=== PATIENT | male | born 1965 | race American Indian/Alaskan Native ===

== ENCOUNTER 2016-07-03 22:40 | Emergency (ER) | payer SELFPAY | END 2016-07-04 01:00 | disposition left against medical advice (07) | LOC: ED 22:40 | DX: T14.8 Other injury of unspecified body region (principal); W54.0XXA Bitten by dog, initial encounter; Y93.9 Activity, unspecified; Y92.89 Other specified places as the place of occurrence of the external cause; Y99.9 Unspecified external cause status; Z53.21 Procedure and treatment not carried out due to patient leaving prior to being seen by health care provider ==

== ENCOUNTER 2016-09-10 02:04 | Emergency (ER) | payer SELFPAY ==
[2016-09-10 03:23] LABS: Basophils % (Auto) 0.8 % (0.0-1.8); Eosinophils % (Auto) 0.2 % (0.0-4.3); Hematocrit 34.7 % (35.5-45.6); Hemoglobin 11.8 gm/dl (11.8-15.2); Mean Corpuscular HGB Conc 34 % (32-34); Mean Corpuscular Hemoglobin 35 pg (28-32); Mean Corpuscular Volume 103 fl (84-94); Platelet Count 139 K/mm3 (140-440); Red Blood Count 3.37 M/mm3 (3.65-5.03); White Blood Count 3.3 K/mm3 (4.5-11.0)
[2016-09-10 03:35] LABS: Anion Gap 23 mmol/L; BUN/Creatinine Ratio 18.88; Blood Urea Nitrogen 17 mg/dL (9-20); Calcium 9.3 mg/dL (8.4-10.2); Carbon Dioxide 20 mmol/L (22-30); Chloride 103.9 mmol/L (98-107); Glucose 91 mg/dL (75-100); Sodium 143 mmol/L (137-145)
--- NOTE | 2016-09-10 04:01 | Emergency Department Report ---
Merle Doc - Documentation Documentation: 51-year-old male presents with acute alcohol intoxication. I'm unclear as outpatient came to the ED. His family members and the bedside received call that he was here and therefore came to the hospital. EMS sheet not available for review. When questioned why he is here he states because he is sick. He says he has heart failure and heart problems. This appears to be chronic. Patient lying flat in the bed with no respiratory distress noted. Patient then states he has been having chest pain all day. Unable to characterize further. Positive EtOH on breath. Patient repeatedly stating he sick and asking for food. Alcohol level is 0.38. I have added cardiac enzymes, EKG, chest x-ray, and magnesium for evaluation. Given patient's acute intoxication I feel he will need further clearance and examination when sober and therefore will be seen by oncoming shift.
[2016-09-10 04:18] LABS: Creatine Kinase MB 3.5 ng/mL (0.0-4.0)
[2016-09-10 04:19] LABS: Creatine Kinase 607 units/L (55-170)
[2016-09-10 04:21] VITALS: BP 137/85
--- NOTE | 2016-09-10 07:28 | XRay Report ---
Single view chest: History: Chest pain. Findings: Cardiomegaly. Trachea is midline. No consolidation, pneumothorax or pleural effusion. Impression: No acute cardiopulmonary findings.
== END 2016-09-10 04:19 ==
LOC: ED 02:04
DX: F10.129 Alcohol abuse with intoxication, unspecified (principal); Z53.21 Procedure and treatment not carried out due to patient leaving prior to being seen by health care provider
CPT/HCPCS: 36415; 71010; 80048; 82550; 82553; 83735; 84484; 85025; 93005; 93010; G0480; 80320

== ENCOUNTER 2016-11-23 18:50 | Emergency (ER) | payer MEDICAID, OTHER ==
--- NOTE | 2016-11-23 20:24 | Emergency Department Report ---
HPI - General Time Seen by Provider: 11/23/16 20:14 - HPI HPI: Room 3 The patient is a 51-year-old male presenting with chief complaint of intoxication. The patient is intoxicated and sleepy and unable to provide a history. Per nursing the patient's girlfriend stated that the patient came to her house "drunk" and then took several Percocets recreationally. The girlfriend states that he does this frequently for recreation and does not have suicidal ideation. EMS reported to nursing that they are familiar with the patient and this behavior. Location: Mental state Duration: Unknown Quality: Intoxicated Severity: Moderate Modifying factors: [see above] Context: [see above] Mode of transportation: [not driving] ED Past Medical Hx - Past Medical History Hx Hypertension: Yes Hx CVA: Yes Hx Congestive Heart Failure: Yes Hx Diabetes: Yes - Surgical History Additional Surgical History: ear surg r) - Family History Family history: no significant - Social History Smoking Status: Unknown if ever smoked Substance Use Type: Alcohol, Other (Percocet) - Medications Home Medications: Home Medications Medication Instructions Recorded Confirmed Last Taken Type Unobtainable [Unobtainable] 06/16/13 06/16/13 Unknown History ED Review of Systems ROS: Stated complaint: OVERDOSE Other details as noted in HPI Comment: Unobtainable due to pts medical conditions Constitutional: denies: chills, fever Physical Exam - Physical Exam Physical Exam: GENERAL: The patient is well-developed well-nourished male sleeping on stretcher not appearing to be in acute distress. Patient awakens to tactile stimuli but promptly falls back asleep HEENT: Normocephalic. Atraumatic. Pupils 3-2 mm bilaterally. Patient has moist mucous membranes. NECK: Trachea midline CHEST/LUNGS: Clear to auscultation. There is no respiratory distress noted. HEART/CARDIOVASCULAR: Regular. There is no tachycardia. There is no gallop rub or murmur. ABDOMEN: Abdomen is soft, nontender. Patient has normal bowel sounds. There is no abdominal distention. SKIN: There is no rash. There is no edema. There is no diaphoresis. NEURO: The patient is asleep but awakens to tactile stimuli. Patient falls back asleep immediately. Patient is not cooperative with neurologic exam MUSCULOSKELETAL: There is no evidence of acute injury. ED Course - Reevaluation(s) Reevaluation #1: 11/24/16 01:33 Patient now awake and answering questions appropriately. Patient denies suicidal ideation and states he took the Percocet recreationally. The patient does not recall specific events that led him to the ED but does acknowledge he consumed alcohol and took Percocet recreationally. Patient denies suicidal ideation. Patient was counseled on the deleterious effects of alcohol and opiates especially when combined and the risk for potential overdose and . Patient verbalized understanding 11/24/16 01:35 ED Medical Decision Making - Lab Data Result diagrams: 11/23/16 20:22 11/23/16 20:22 Laboratory Tests 11/23/16 11/23/16 11/23/16 20:22 20:22 20:22 WBC 3.8 L RBC 2.68 L Hgb 9.7 L Hct 28.5 L MCV 106 H MCH 36 H MCHC 34 RDW 14.0 Plt Count 133 L Lymph % (Auto) 48.3 H Kingman % (Auto) 12.2 H Eos % (Auto) 0.7 Baso % (Auto) 0.9 Lymph # 1.8 Kingman # 0.5 Eos # 0.0 Baso # 0.0 Seg Neutrophils % 37.9 L Seg Neutrophils # 1.4 L Sodium 144 Potassium 3.3 L Chloride 101.1 Carbon Dioxide 25 BUN 12 Creatinine 0.8 Estimated GFR > 60 BUN/Creatinine Ratio 15.00 Glucose 76 Calcium 9.2 Total Bilirubin 0.40 AST 80 H ALT 25 Alkaline Phosphatase 42 Total Creatine Kinase 216 H CK-MB (CK-2) 2.3 CK-MB (CK-2) Rel Index 1.0 Troponin T 0.013 Total Protein 7.3 Albumin 3.9 Albumin/Globulin Ratio 1.1 Salicylates Urine Opiates Screen Urine Methadone Screen Acetaminophen Ur Barbiturates Screen Ur Phencyclidine Scrn Ur Amphetamines Screen U Benzodiazepines Scrn Urine Cocaine Screen U Marijuana (THC) Screen Drugs of Abuse Note Plasma/Serum Alcohol 11/23/16 11/23/16 11/23/16 20:22 20:22 20:22 WBC RBC Hgb Hct MCV MCH MCHC RDW Plt Count Lymph % (Auto) Kingman % (Auto) Eos % (Auto) Baso % (Auto) Lymph # Kingman # Eos # Baso # Seg Neutrophils % Seg Neutrophils # Sodium Potassium Chloride Carbon Dioxide BUN Creatinine Estimated GFR BUN/Creatinine Ratio Glucose Calcium Total Bilirubin AST ALT Alkaline Phosphatase Total Creatine Kinase CK-MB (CK-2) CK-MB (CK-2) Rel Index Troponin T Total Protein Albumin Albumin/Globulin Ratio Salicylates < 0.3 L Urine Opiates Screen Urine Methadone Screen Acetaminophen < 15.0 Ur Barbiturates Screen Ur Phencyclidine Scrn Ur Amphetamines Screen U Benzodiazepines Scrn Urine Cocaine Screen U Marijuana (THC) Screen Drugs of Abuse Note Plasma/Serum Alcohol 0.21 H 11/23/16 Unknown WBC RBC Hgb Hct MCV MCH MCHC RDW Plt Count Lymph % (Auto) Kingman % (Auto) Eos % (Auto) Baso % (Auto) Lymph # Kingman # Eos # Baso # Seg Neutrophils % Seg Neutrophils # Sodium Potassium Chloride Carbon Dioxide BUN Creatinine Estimated GFR BUN/Creatinine Ratio Glucose Calcium Total Bilirubin AST ALT Alkaline Phosphatase Total Creatine Kinase CK-MB (CK-2) CK-MB (CK-2) Rel Index Troponin T Total Protein Albumin Albumin/Globulin Ratio Salicylates Urine Opiates Screen Presumptive negative Urine Methadone Screen Presumptive negative Acetaminophen Ur Barbiturates Screen Presumptive negative Ur Phencyclidine Scrn Presumptive negative Ur Amphetamines Screen Presumptive negative U Benzodiazepines Scrn Presumptive positive Urine Cocaine Screen Presumptive negative U Marijuana (THC) Screen Presumptive positive Drugs of Abuse Note Disclamer Plasma/Serum Alcohol - Differential Diagnosis polysubstance abuse, intoxication, Critical care attestation.: If time is entered above; I have spent that time in minutes in the direct care of this critically ill patient, excluding procedure time. ED Disposition Clinical Impression: Polysubstance abuse, Alcohol intoxication Disposition: DC-01 TO HOME OR SELFCARE Is pt being admited?: No Does the pt Need Aspirin: No Condition: Stable Instructions: Polysubstance Abuse (ED), Alcohol Intoxication (ED), Abuse of Alcohol (ED), At-Risk Alcohol Use (ED), Narcotic Abuse (ED) Additional Instructions: Return to the emergency department immediately should you develop worsening symptoms, fever, inability to tolerate food or liquid or any other concerns. Referrals: PRIMARY CARE, [Primary Care Provider] - 3-5 Days Time of Disposition: 01:35 (DC to family/friends)
[2016-11-23 20:46] LABS: Basophils % (Auto) 0.9 % (0.0-1.8); Eosinophils % (Auto) 0.7 % (0.0-4.3); Hematocrit 28.5 % (35.5-45.6); Hemoglobin 9.7 gm/dl (11.8-15.2); Mean Corpuscular HGB Conc 34 % (32-34); Mean Corpuscular Hemoglobin 36 pg (28-32); Mean Corpuscular Volume 106 fl (84-94); Platelet Count 133 K/mm3 (140-440); Red Blood Count 2.68 M/mm3 (3.65-5.03); White Blood Count 3.8 K/mm3 (4.5-11.0)
[2016-11-23 21:14] LABS: Creatine Kinase MB 2.3 ng/mL (0.0-4.0)
[2016-11-23 21:15] LABS: Alanine Aminotransferase 25 units/L (7-56); Albumin 3.9 g/dL (3.9-5); Albumin/Globulin Ratio 1.1 %; Alkaline Phosphatase 42 units/L (35-129); Anion Gap 21 mmol/L; Blood Urea Nitrogen 12 mg/dL (9-20); Calcium 9.2 mg/dL (8.4-10.2); Carbon Dioxide 25 mmol/L (22-30); Chloride 101.1 mmol/L (98-107); Creatine Kinase 216 units/L (55-170); Glucose 76 mg/dL (75-100); Potassium 3.3 mmol/L (3.6-5.0); Sodium 144 mmol/L (137-145); Total Protein 7.3 g/dL (6.3-8.2)
[2016-11-23] MEDS ORDERED: VITAMIN B-1 100 MG, FOLVITE 1 MG, INFUVITE 10 ML, MAGNESIUM SULFATE 2 GM in NACL 0.9% 1... IV ONE (21:28)
[2016-11-23 23:08] LABS: Urine Drugs of Abuse Note Disclamer
[2016-11-24 01:27] VITALS: BP 170/87
== END 2016-11-24 02:00 | disposition home or self-care (01) ==
LOC: ED 18:50
DX: T40.2X1A Poisoning by other opioids, accidental (unintentional), initial encounter (principal); F10.129 Alcohol abuse with intoxication, unspecified; I50.9 Heart failure, unspecified; Z88.0 Allergy status to penicillin; E11.9 Type 2 diabetes mellitus without complications; Z86.73 Personal history of transient ischemic attack (TIA), and cerebral infarction without residual deficits; X58.XXXA Exposure to other specified factors, initial encounter
CPT/HCPCS: 36415; 80053; 80307; 82550; 82553; 84484; 85025; 93005; 93010; 96365; 96366; 99284; G0480; J3411; J3475; J7030; 80320

== ENCOUNTER 2018-10-31 19:27 | Emergency (ER) | payer MEDICAID ==
--- NOTE | 2018-10-31 20:01 | Event Note ---
ED Screening Note Date of service: 10/31/18 Time: 19:59 ED Screening Note: 53 y o male presents to Ed cc of right sided cp x yesterday non radiating, not getting better This initial assessment/diagnostic orders/clinical plan/treatment(s) is/are subject to change based on patients health status, clinical progression and re- assessment by fellow clinical providers in the ED. Further treatment and workup at subsequent clinical providers discretion. Patient/guardian urged not to elope from the ED as their condition may be serious if not clinically assessed and managed. Initial orders include: labs,ekg, cxr
--- NOTE | 2018-10-31 20:26 | Emergency Department Report ---
ED Chest Pain HPI - General Chief Complaint: Chest Pain Stated Complaint: CHEST PAIN Time Seen by Provider: 10/31/18 19:59 Source: patient Mode of arrival: Ambulatory Limitations: No Limitations - History of Present Illness Initial Comments: 53-year-old male presents to ED with right-sided chest pain since yesterday. Patient states pain is sharp in nature, worse with twisting of torso for lifting right arm. Patient denies cough, fever, shortness of breath. Denies leg pain or swelling. MD Complaint: chest pain -: days(s) (1) Onset: during rest Pain Location: right chest Pain Radiation: none Severity: moderate Quality: sharp Consistency: intermittent Improves With: remaining still Worsens With: palpation, movement re: denies: nausea, vomting, diaphoresis, dyspnea Other Symptoms: denies: cough, fever, leg swelling - Related Data Home Medications Medication Instructions Recorded Confirmed Last Taken Apixaban [Eliquis] 5 mg PO DAILY 10/31/18 10/31/18 10/31/18 AtorvaSTATin [Lipitor] 40 mg PO QHS 10/31/18 10/31/18 10/31/18 Carvedilol [Coreg] 6.25 mg PO BID 10/31/18 10/31/18 10/31/18 Furosemide [Lasix TAB] 40 mg PO QDAY 10/31/18 10/31/18 10/31/18 Sacubitril/Valsartan [Entresto 97 1 each PO DAILY 10/31/18 10/31/18 10/31/18 mg-103 mg Tablet] Previous Rx's Medication Instructions Recorded Last Taken Type Naproxen [Naprosyn] 500 mg PO BID #20 tablet 10/31/18 Unknown Rx Allergies Allergy/AdvReac Type Severity Reaction Status Date / Time Penicillins Allergy Swelling Verified 06/16/13 21:57 Heart Score - HEART Score History: Slightly suspicious EKG: Normal Age: 45-65 Risk factors: No known risk factors Troponin: < normal limit HEART Score: 1 ED Review of Systems ROS: Stated complaint: CHEST PAIN Other details as noted in HPI Comment: All other systems reviewed and negative Constitutional: denies: chills, fever Respiratory: denies: cough, shortness of breath Cardiovascular: chest pain Gastrointestinal: denies: nausea, vomiting Musculoskeletal: other (denies leg pain or swelling) ED Past Medical Hx - Past Medical History Previous Medical History?: Yes Hx Hypertension: Yes Hx CVA: Yes Hx Congestive Heart Failure: Yes Hx Diabetes: Yes - Surgical History Past Surgical History?: Yes Additional Surgical History: ear surg r) - Social History Smoking Status: Current Every Day Smoker Substance Use Type: Marijuana - Medications Home Medications: Home Medications Medication Instructions Recorded Confirmed Last Taken Type Apixaban [Eliquis] 5 mg PO DAILY 10/31/18 10/31/18 10/31/18 History AtorvaSTATin [Lipitor] 40 mg PO QHS 10/31/18 10/31/18 10/31/18 History Carvedilol [Coreg] 6.25 mg PO BID 10/31/18 10/31/18 10/31/18 History Furosemide [Lasix TAB] 40 mg PO QDAY 10/31/18 10/31/18 10/31/18 History Naproxen [Naprosyn] 500 mg PO BID #20 tablet 10/31/18 Unknown Rx Sacubitril/Valsartan [Entresto 97 1 each PO DAILY 10/31/18 10/31/18 10/31/18 History mg-103 mg Tablet] ED Physical Exam - General Limitations: No Limitations General appearance: alert, in no apparent distress - Head Head exam: Present: atraumatic, normocephalic - Eye Eye exam: Present: normal appearance, PERRL, EOMI - ENT ENT exam: Present: mucous membranes moist - Neck Neck exam: Present: normal inspection - Respiratory Respiratory exam: Present: normal lung sounds bilaterally, chest wall tenderness (right anterior chest wall). Absent: respiratory distress, wheezes, rales - Cardiovascular Cardiovascular Exam: Present: regular rate, normal rhythm - GI/Abdominal GI/Abdominal exam: Present: soft. Absent: distended, tenderness - Extremities Exam Extremities exam: Present: normal inspection. Absent: pedal edema, calf tenderness - Neurological Exam Neurological exam: Present: alert, oriented X3 - Skin Skin exam: Present: warm, dry, intact, normal color ED Course Vital Signs 10/31/18 10/31/18 10/31/18 19:59 20:52 23:14 Temperature 98.2 F Pulse Rate 78 73 87 Respiratory 20 20 18 Rate Blood Pressure 159/49 Blood Pressure 185/80 175/89 [Left] O2 Sat by Pulse 98 98 100 Oximetry ED Medical Decision Making - Lab Data Result diagrams: 10/31/18 20:26 10/31/18 20:26 - EKG Data -: EKG Interpreted by Me EKG shows normal: sinus rhythm, axis, intervals, QRS complexes, ST-T waves Rate: normal - EKG Data Interpretation: LVH - Radiology Data Radiology results: report reviewed, image reviewed - Medical Decision Making - right chest wall pain, tender to palpation, worse with movement of arm and torso - vitals normal - CXR normal - EKG, labs unremarkable - likely costochondritis, toradol given - outpt f/u advised - return precautions given - Differential Diagnosis chest wall pain, pneumonia, PTX Critical care attestation.: If time is entered above; I have spent that time in minutes in the direct care of this critically ill patient, excluding procedure time. ED Disposition Clinical Impression: Acute costochondritis Disposition: DC-01 TO HOME OR SELFCARE Is pt being admited?: No Condition: Stable Instructions: Costochondritis (ED) Prescriptions: Naproxen [Naprosyn] 500 mg PO BID #20 tablet [facility] [Referring] - 3-5 Days PRIMARY CAREMD [Referring] - 3-5 Days Time of Disposition: 22:53
--- NOTE | 2018-10-31 20:48 | XRay Report ---
CHEST 2 VIEWS INDICATION: Chest Pain. Chest pain since yesterday COMPARISON: 09/10/2016 FINDINGS: Support devices: None. Heart: Within normal limits. Lungs/pleura: No acute air space or interstitial disease. No pneumothorax. Additional findings: None. IMPRESSION: 1. No acute findings. Signer Name: Morgan Maldonado MD Signed: 10/31/2018 8:44 PM Workstation Name: [id number]
[2018-10-31 20:52] LABS: Basophils % (Auto) 0.6 % (0.0-1.8); Eosinophils % (Auto) 0.6 % (0.0-4.3); Hematocrit 34.8 % (35.5-45.6); Hemoglobin 12.3 gm/dl (11.8-15.2); Lymphocytes # (Auto) 1.6 K/mm3 (1.2-5.4); Lymphocytes % (Auto) 24.9 % (13.4-35.0); Mean Corpuscular HGB Conc 35 % (32-34); Mean Corpuscular Volume 95 fl (84-94); Monocytes # (Auto) 0.5 K/mm3 (0.0-0.8); Monocytes % (Auto) 7.4 % (0.0-7.3); Platelet Count 165 K/mm3 (140-440); Red Blood Count 3.65 M/mm3 (3.65-5.03); Red Cell Distribution Width 14.4 % (13.2-15.2)
[2018-10-31 21:15] LABS: Alanine Aminotransferase 27 units/L (7-56); Albumin 3.7 g/dL (3.9-5); BUN/Creatinine Ratio 16; Blood Urea Nitrogen 11 mg/dL (9-20); Calcium 9.6 mg/dL (8.4-10.2); Hemolysis Index 0
[2018-10-31] MEDS ORDERED: TORADOL IM ONE (22:44)
[2018-10-31] MEDS ORDERED: TORADOL IV ONE (22:58)
[2018-10-31 23:15] VITALS: BP 175/89
== END 2018-10-31 23:16 | disposition home or self-care (01) ==
LOC: ED 19:27
DX: M94.0 Chondrocostal junction syndrome [Tietze] (principal); I11.0 Hypertensive heart disease with heart failure; I50.9 Heart failure, unspecified; E11.9 Type 2 diabetes mellitus without complications; F17.200 Nicotine dependence, unspecified, uncomplicated; F12.90 Cannabis use, unspecified, uncomplicated; Z86.73 Personal history of transient ischemic attack (TIA), and cerebral infarction without residual deficits; Z79.899 Other long term (current) drug therapy; Z88.0 Allergy status to penicillin
CPT/HCPCS: 36415; 71046; 80053; 84484; 85025; 93005; 93010; 96374; 99284; J1885

== ENCOUNTER 2018-11-09 10:19 | Inpatient (IN) | payer MEDICAID ==
[2018-11-09 11:09] LABS: Basophils % (Auto) 0.4 % (0.0-1.8); Eosinophils % (Auto) 0.2 % (0.0-4.3); Hematocrit 38.1 % (35.5-45.6); Lymphocytes # (Auto) 1.2 K/mm3 (1.2-5.4); Lymphocytes % (Auto) 14.8 % (13.4-35.0); Mean Corpuscular HGB Conc 34 % (32-34); Mean Corpuscular Hemoglobin 33 pg (28-32); Mean Corpuscular Volume 96 fl (84-94); Monocytes # (Auto) 0.7 K/mm3 (0.0-0.8); Monocytes % (Auto) 8.9 % (0.0-7.3); Red Blood Count 3.98 M/mm3 (3.65-5.03); Red Cell Distribution Width 14.9 % (13.2-15.2)
[2018-11-09 11:25] LABS: Platelet Count 50 K/mm3 (140-440)
[2018-11-09 11:26] LABS: Alanine Aminotransferase 54 units/L (7-56); Albumin 3.7 g/dL (3.9-5); BUN/Creatinine Ratio 28; Blood Urea Nitrogen 28 mg/dL (9-20); Calcium 10.6 mg/dL (8.4-10.2); Hemolysis Index 9
[2018-11-09] MEDS ORDERED: NACL 0.9% 1000 ML 1,000 ML IV ONE (12:28)
[2018-11-09] MEDS ORDERED: ZOFRAN IV ONE ×2 (12:28→15:51)
[2018-11-09] MEDS ORDERED: MORPHINE IV ONE (12:28)
--- NOTE | 2018-11-09 12:32 | Emergency Department Report ---
ED General Adult HPI - General Chief complaint: Nausea/Vomiting/Diarrhea Stated complaint: VOMITING Time Seen by Provider: 11/09/18 11:55 Source: patient, family Mode of arrival: Ambulatory Limitations: No Limitations - History of Present Illness Initial comments: The patient presents to the emergency department with the chief complaint abdominal pain 2 weeks. Patient also complains of nausea vomiting as well. Patient states was seen here a week and a half ago for the same type of pain. Home medications aren't providing any relief. Patient is chest pain, shortness breath, or headache. -: Gradual Location: abdomen Radiation: non-radiation Severity scale (0 -10): 7 Quality: sharp Consistency: constant Improves with: none Worsens with: none Associated Symptoms: denies other symptoms Treatments Prior to Arrival: none - Related Data Home Medications Medication Instructions Recorded Confirmed Last Taken Apixaban [Eliquis] 5 mg PO DAILY 10/31/18 10/31/18 10/31/18 AtorvaSTATin [Lipitor] 40 mg PO QHS 10/31/18 10/31/18 10/31/18 Carvedilol [Coreg] 6.25 mg PO BID 10/31/18 10/31/18 10/31/18 Furosemide [Lasix TAB] 40 mg PO QDAY 10/31/18 10/31/18 10/31/18 Sacubitril/Valsartan [Entresto 97 1 each PO DAILY 10/31/18 10/31/18 10/31/18 mg-103 mg Tablet] Previous Rx's Medication Instructions Recorded Last Taken Type Naproxen [Naprosyn] 500 mg PO BID #20 tablet 10/31/18 Unknown Rx Allergies Allergy/AdvReac Type Severity Reaction Status Date / Time Penicillins Allergy Swelling Verified 06/16/13 21:57 ED Review of Systems ROS: Stated complaint: VOMITING Other details as noted in HPI Comment: All other systems reviewed and negative Constitutional: denies: chills, fever Eyes: denies: eye pain, eye discharge, vision change ENT: denies: ear pain, throat pain Respiratory: denies: cough, shortness of breath, wheezing Cardiovascular: denies: chest pain, palpitations Endocrine: no symptoms reported Gastrointestinal: abdominal pain, nausea, vomiting. denies: diarrhea Genitourinary: denies: urgency, dysuria Musculoskeletal: denies: back pain, joint swelling, arthralgia Skin: denies: rash, lesions Neurological: denies: headache, weakness, paresthesias Psychiatric: denies: anxiety, depression Hematological/Lymphatic: denies: easy bleeding, easy bruising ED Past Medical Hx - Past Medical History Previous Medical History?: Yes Hx Hypertension: Yes Hx CVA: Yes Hx Congestive Heart Failure: Yes Hx Diabetes: Yes - Surgical History Past Surgical History?: Yes Additional Surgical History: ear surg r) - Social History Smoking Status: Current Every Day Smoker Substance Use Type: Marijuana - Medications Home Medications: Home Medications Medication Instructions Recorded Confirmed Last Taken Type Apixaban [Eliquis] 5 mg PO DAILY 10/31/18 10/31/18 10/31/18 History AtorvaSTATin [Lipitor] 40 mg PO QHS 10/31/18 10/31/18 10/31/18 History Carvedilol [Coreg] 6.25 mg PO BID 10/31/18 10/31/18 10/31/18 History Furosemide [Lasix TAB] 40 mg PO QDAY 10/31/18 10/31/18 10/31/18 History Naproxen [Naprosyn] 500 mg PO BID #20 tablet 10/31/18 Unknown Rx Sacubitril/Valsartan [Entresto 97 1 each PO DAILY 10/31/18 10/31/18 10/31/18 History mg-103 mg Tablet] ED Physical Exam - General Limitations: No Limitations General appearance: alert, in no apparent distress - Head Head exam: Present: atraumatic, normocephalic - Eye Eye exam: Present: normal appearance - ENT ENT exam: Present: mucous membranes dry - Neck Neck exam: Present: normal inspection - Respiratory Respiratory exam: Present: normal lung sounds bilaterally. Absent: respiratory distress - Cardiovascular Cardiovascular Exam: Present: regular rate, normal rhythm. Absent: systolic murmur, diastolic murmur, rubs, gallop - GI/Abdominal GI/Abdominal exam: Present: soft, tenderness (Diffusely TTP), normal bowel sounds. Absent: distended - Rectal Rectal exam: Present: deferred - Extremities Exam Extremities exam: Present: normal inspection - Back Exam Back exam: Present: normal inspection - Neurological Exam Neurological exam: Present: alert, oriented X3, CN II-XII intact. Absent: motor sensory deficit - Psychiatric Psychiatric exam: Present: normal affect, normal mood - Skin Skin exam: Present: warm, dry, intact, normal color. Absent: rash ED Course Vital Signs 11/09/18 11/09/18 10:27 12:53 Temperature 97.8 F Pulse Rate 103 H Respiratory 16 18 Rate Blood Pressure 136/73 O2 Sat by Pulse 100 Oximetry ED Medical Decision Making - Lab Data Result diagrams: 11/09/18 10:51 11/09/18 10:51 Lab Results 11/09/18 11/09/18 11/09/18 Range/Units 10:33 10:51 10:51 WBC 7.9 (4.5-11.0) K/mm3 RBC 3.98 (3.65-5.03) M/mm3 Hgb 13.0 (11.8-15.2) gm/dl Hct 38.1 (35.5-45.6) % MCV 96 H (84-94) fl MCH 33 H (28-32) pg MCHC 34 (32-34) % RDW 14.9 (13.2-15.2) % Plt Count 50 L (140-440) K/mm3 Lymph % (Auto) 14.8 (13.4-35.0) % Graves % (Auto) 8.9 H (0.0-7.3) % Eos % (Auto) 0.2 (0.0-4.3) % Baso % (Auto) 0.4 (0.0-1.8) % Lymph # 1.2 (1.2-5.4) K/mm3 Graves # 0.7 (0.0-0.8) K/mm3 Eos # 0.0 (0.0-0.4) K/mm3 Baso # 0.0 (0.0-0.1) K/mm3 Seg Neutrophils % 75.7 H (40.0-70.0) % Seg Neutrophils # 6.0 (1.8-7.7) K/mm3 Sodium 136 L (137-145) mmol/L Potassium 5.0 (3.6-5.0) mmol/L Chloride 101.2 (98-107) mmol/L Carbon Dioxide 21 L (22-30) mmol/L Anion Gap 19 mmol/L BUN 28 H (9-20) mg/dL Creatinine 1.0 (0.8-1.5) mg/dL Estimated GFR > 60 ml/min BUN/Creatinine Ratio 28 % Glucose 92 (75-100) mg/dL POC Glucose 81 (70-105) Calcium 10.6 H (8.4-10.2) mg/dL Total Bilirubin 0.90 (0.1-1.2) mg/dL AST 198 H (5-40) units/L ALT 54 (7-56) units/L Alkaline Phosphatase 238 H (35-129) units/L Total Protein 7.8 (6.3-8.2) g/dL Albumin 3.7 L (3.9-5) g/dL Albumin/Globulin Ratio 0.9 % Lipase (13-60) units/L // Range/Units 10:51 WBC (4.5-11.0) K/mm3 RBC (3.65-5.03) M/mm3 Hgb (11.8-15.2) gm/dl Hct (35.5-45.6) % MCV (84-94) fl MCH (28-32) pg MCHC (32-34) % RDW (13.2-15.2) % Plt Count (140-440) K/mm3 Lymph % (Auto) (13.4-35.0) % Graves % (Auto) (0.0-7.3) % Eos % (Auto) (0.0-4.3) % Baso % (Auto) (0.0-1.8) % Lymph # (1.2-5.4) K/mm3 Graves # (0.0-0.8) K/mm3 Eos # (0.0-0.4) K/mm3 Baso # (0.0-0.1) K/mm3 Seg Neutrophils % (40.0-70.0) % Seg Neutrophils # (1.8-7.7) K/mm3 Sodium (137-145) mmol/L Potassium (3.6-5.0) mmol/L Chloride (98-107) mmol/L Carbon Dioxide (22-30) mmol/L Anion Gap mmol/L BUN (9-20) mg/dL Creatinine (0.8-1.5) mg/dL Estimated GFR ml/min BUN/Creatinine Ratio % Glucose (75-100) mg/dL POC Glucose (70-105) Calcium (8.4-10.2) mg/dL Total Bilirubin (0.1-1.2) mg/dL AST (5-40) units/L ALT (7-56) units/L Alkaline Phosphatase (35-129) units/L Total Protein (6.3-8.2) g/dL Albumin (3.9-5) g/dL Albumin/Globulin Ratio % Lipase 178 H (13-60) units/L - Radiology Data Radiology results: report reviewed - Medical Decision Making Stress results and plan acute with patient and it was at this time the patient informed me that he is has significant amount of weight loss in the last 2-3 months. Critical care attestation.: If time is entered above; I have spent that time in minutes in the direct care of this critically ill patient, excluding procedure time. ED Disposition Clinical Impression: Liver masses Disposition: OP ADMIT IP TO THIS HOSP Is pt being admited?: Yes Does the pt Need Aspirin: No Condition: Fair Referrals: NOE ELAINE MD [Primary Care Provider] - 3-5 Days
--- NOTE | 2018-11-09 14:29 | Cat Scan Report ---
CT ABDOMEN AND PELVIS WITH CONTRAST HISTORY: Lower abdominal pain with nausea vomiting and diarrhea for 2 weeks COMPARISON: None. TECHNIQUE: Axial CT images were obtained through the abdomen and pelvis after 100 cc of Omnipaque 300 intravenously. Sagittal and coronal reformatted images. All CT scans at this location are performed using CT dose reduction for ALARA by means of automated exposure control. FINDINGS: CT ABDOMEN: Lung Bases: Clear. Liver: The liver is enlarged. There are numerous hypodense liver masses throughout the liver parenchy ma. The largest mass measures up to 9.4 cm in diameter and the left hepatic lobe. The hepatic veins a nd portal venous system are patent. No underlying parenchymal liver disease is appreciated. Biliary: No significant abnormality. Spleen: No significant abnormality. Unenlarged. Pancreas: No significant abnormality. Adrenals: No significant abnormality. Kidneys: No significant abnormality. 1 cm cyst near the inferior pole of the right kidney is noted. Lymphatics: No lymphadenopathy. Vasculature: The arterial and venous structures are patent. Dual IVCs are noted. Bowel/Peritoneum: The bowel loops are poorly delineated secondary to decreased peritoneal fat and lac k of oral contrast. No obvious GI mass is appreciated. No evidence for obstruction. There is moderate pelvic ascites. No free air. The appendix is not confidently identified. CT PELVIS: : No significant abnormality. Osseous Structures: Moderate to severe degenerative disc disease is identified at L4-5. No fracture o r suspicious bony lesion is identified. Additional Findings: None IMPRESSION: Hepatomegaly with multiple liver masses concerning for a metastatic process. Signer Name: Marco A Dent Jr, MD Signed: 11/09/2018 2:25 PM Workstation Name: [id number]
[2018-11-09] MEDS ORDERED: ZOFRAN ONE (15:54)
[2018-11-09] MEDS ORDERED: PHENERGAN PO PRN (18:07)
--- NOTE | 2018-11-09 18:22 | History and Physical Report ---
History of Present Illness Date of examination: 11/09/18 Date of admission: 11/09/18 14:59 Chief complaint: Abdominal pain for 2 weeks Loss of weight for 1 year Vomiting for 2 weeks History of present illness: 53-year-old -[place] male with history of DVT congestive heart failure hypertension and hyperlipidemia presents to the emergency room for abdominal p ain of 2 weeks' and vomiting off and on for 2 weeks. Patient says he lost about 70 pounds over the last 1 year. Patient was not diagnosed with any cancer.. No diarrhea. No fever or chills. Abdominal pain about 6 on a scale of 1-10. Telemetry in character. Intermittent in nature. Patient does loss of appetite. Past Medical History Previous Medical History?: Yes Hypertension: Yes CVA: Yes Congestive Heart Failure: Yes Diabetes: Yes Surgical History Past Surgical History?: Yes Additional Surgical History: ear surg r) Social History Smoking Status: Current Every Day Smoker Substance Use Type: Marijuana Family history Htn - Medications Home Medications: Home Medications Medication Instructions Recorded Confirmed Last Taken Type Apixaban [Eliquis] 5 mg PO DAILY 10/31/18 10/31/18 10/31/18 History AtorvaSTATin [Lipitor] 40 mg PO QHS 10/31/18 10/31/18 10/31/18 History Carvedilol [Coreg] 6.25 mg PO BID 10/31/18 10/31/18 10/31/18 History Furosemide [Lasix TAB] 40 mg PO QDAY 10/31/18 10/31/18 10/31/18 History Naproxen [Naprosyn] 500 mg PO BID #20 tablet 10/31/18 Unknown Rx Sacubitril/Valsartan [Entresto 97 1 each PO DAILY 10/31/18 10/31/18 10/31/18 History mg-103 mg Tablet] Review of Systems ROS: Stated complaint: VOMITING Other details as noted in HPI Comment: All other systems reviewed and negative Constitutional: denies: chills, fever, lost 70 pounds weight over last 1 year Eyes: denies: eye pain, eye discharge, vision change ENT: denies: ear pain, throat pain Respiratory: denies: cough, shortness of breath, wheezing Cardiovascular: denies: chest pain, palpitations Endocrine: no symptoms reported Gastrointestinal: abdominal pain, nausea and vomiting for 2 weeks. Vomiting about 3-4 times a day. denies: diarrhea Genitourinary: denies: urgency, dysuria Musculoskeletal: denies: back pain, joint swelling, arthralgia Skin: denies: rash, lesions Neurological: denies: headache, weakness, paresthesias Psychiatric: denies: anxiety, depression Hematological/Lymphatic: denies: easy bleeding, easy bruising 14 point review of systems done and otherwise negative Medications and Allergies Allergies Allergy/AdvReac Type Severity Reaction Status Date / Time Penicillins Allergy Swelling Verified 06/16/13 21:57 Home Medications Medication Instructions Recorded Confirmed Last Taken Type Apixaban [Eliquis] 5 mg PO BID 10/31/18 11/09/18 11/07/18 History AtorvaSTATin [Lipitor] 40 mg PO DAILY 10/31/18 11/09/18 11/07/18 History Carvedilol [Coreg] 6.25 mg PO BID 10/31/18 11/09/18 11/07/18 History Furosemide [Lasix TAB] 40 mg PO BID 10/31/18 11/09/18 10/31/18 History Sacubitril/Valsartan [Entresto 97 1 each PO BID 10/31/18 11/09/18 11/07/18 History mg-103 mg Tablet] Promethazine [Phenergan] 25 mg PO Q6HR PRN 11/09/18 11/09/18 11/07/18 History Active Meds: Active Medications Apixaban (Eliquis) 5 mg PO BID WENDY; Protocol Atorvastatin Calcium (Lipitor) 40 mg PO DAILY WENDY Carvedilol (Coreg) 6.25 mg PO BID WENDY Furosemide (Lasix) 40 mg PO BID WENDY Miscellaneous Medication (Sacubitril/Valsartan [Entresto 97 Mg-103 Mg Tablet]) 1 each PO BID [facility] Pneumococcal Polyvalent Vaccine (Pneumovax 23) 0.5 ml IM .ONCE ONE Stop: 11/10/18 12:01 Promethazine HCl (Phenergan) 25 mg PO Q6HR PRN PRN Reason: Nausea Exam - Constitutional Vitals: Temp Pulse Resp BP Pulse Ox 98.4 F 86 20 143/63 99 11/09/18 16:56 11/09/18 16:56 11/09/18 16:56 11/09/18 16:56 11/09/18 16:56 General appearance: Present: no acute distress, well-nourished - EENT Eyes: Present: PERRL ENT: hearing intact, clear oral mucosa - Neck Neck: Present: supple, normal ROM - Respiratory Respiratory effort: normal Respiratory: bilateral: CTA - Cardiovascular Heart rate: 78 Rhythm: regular Heart Sounds: Present: S1 & S2. Absent: rub, click - Extremities Extremities: no ischemia, pulses intact, pulses symmetrical, No edema Peripheral Pulses: within normal limits - Abdominal General gastrointestinal: Present: soft, tender, distended, normal bowel sounds, mass, other (abdominal mass. Hepatomegaly. Liver enlarged to the umbilicus. Forming nature, nodular) Localized gastrointestinal: tender: diffuse Male genitourinary: Present: normal - Rectal Rectal Exam: stool brown - Integumentary Integumentary: Present: clear, warm, dry - Musculoskeletal Musculoskeletal: gait normal, strength equal bilaterally - Psychiatric Psychiatric: appropriate mood/affect, intact judgment & insight - Neurologic Neurologic: CNII-XII intact, moves all extremities - Allied Health Allied health notes reviewed: nursing, case management Results - Labs CBC & Chem 7: 11/09/18 10:51 11/09/18 10:51 Labs: Laboratory Last Values WBC 7.9 K/mm3 (4.5-11.0) 11/09/18 10:51 RBC 3.98 M/mm3 (3.65-5.03) 11/09/18 10:51 Hgb 13.0 gm/dl (11.8-15.2) 11/09/18 10:51 Hct 38.1 % (35.5-45.6) 11/09/18 10:51 MCV 96 fl (84-94) H 11/09/18 10:51 MCH 33 pg (28-32) H 11/09/18 10:51 MCHC 34 % (32-34) 11/09/18 10:51 RDW 14.9 % (13.2-15.2) 11/09/18 10:51 Plt Count 50 K/mm3 (140-440) L 11/09/18 10:51 Lymph % (Auto) 14.8 % (13.4-35.0) 11/09/18 10:51 [place] % (Auto) 8.9 % (0.0-7.3) H 11/09/18 10:51 Eos % (Auto) 0.2 % (0.0-4.3) 11/09/18 10:51 Baso % (Auto) 0.4 % (0.0-1.8) 11/09/18 10:51 Lymph # 1.2 K/mm3 (1.2-5.4) 11/09/18 10:51 [place] # 0.7 K/mm3 (0.0-0.8) 11/09/18 10:51 Eos # 0.0 K/mm3 (0.0-0.4) 11/09/18 10:51 Baso # 0.0 K/mm3 (0.0-0.1) 11/09/18 10:51 Seg Neutrophils % 75.7 % (40.0-70.0) H 11/09/18 10:51 Seg Neutrophils # 6.0 K/mm3 (1.8-7.7) 11/09/18 10:51 Sodium 136 mmol/L (137-145) L 11/09/18 10:51 Potassium 5.0 mmol/L (3.6-5.0) 11/09/18 10:51 Chloride 101.2 mmol/L (98-107) 11/09/18 10:51 Carbon Dioxide 21 mmol/L (22-30) L 11/09/18 10:51 19 mmol/L 11/09/18 10:51 BUN 28 mg/dL (9-20) H 11/09/18 10:51 1.0 mg/dL (0.8-1.5) 11/09/18 10:51 Estimated GFR > 60 ml/min 11/09/18 10:51 28 % 11/09/18 10:51 Glucose 92 mg/dL (75-100) 11/09/18 10:51 POC Glucose 81 (70-105) 11/09/18 10:33 Calcium 10.6 mg/dL (8.4-10.2) H 11/09/18 10:51 0.90 mg/dL (0.1-1.2) 11/09/18 10:51 AST 198 units/L (5-40) H 11/09/18 10:51 ALT 54 units/L (7-56) 11/09/18 10:51 238 units/L (35-129) H 11/09/18 10:51 7.8 g/dL (6.3-8.2) 11/09/18 10:51 3.7 g/dL (3.9-5) L 11/09/18 10:51 0.9 % 11/09/18 10:51 178 units/L (13-60) H 11/09/18 10:51 - Imaging and Cardiology EKG: report reviewed CT scan - abdomen: report reviewed Imaging and Cardiology: CT abdomen CT ABDOMEN: Lung Bases: Clear. Liver: The liver is enlarged. There are numerous hypodense liver masses throughout the liver parenchyma. The largest mass measures up to 9.4 cm in diameter and the left hepatic lobe. The hepatic veins and portal venous system are patent. No underlying parenchymal liver disease is appreciated IMPRESSION: Hepatomegaly with multiple liver masses concerning for a metastatic process Assessment and Plan Advance Directives: Yes (full code) VTE prophylaxis?: Chemical Plan of care discussed with patient/family: Yes - Patient Problems (1) Liver metastasis Current Visit: Yes Status: Acute Plan to address problem: Newly diagnosed liver metastasis Colonoscopy to rule out colon cancer CT-guided biopsy Oncology consult Dr. 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 Plan to address problem: Patient lost weight secondary to cancer Primary unknown at this point (3) CHF (congestive heart failure) Current Visit: Yes Status: Chronic Qualifiers: Heart failure type: combined systolic and diastolic Plan to address problem: Continue ENTRESTO (4) Malnutrition Current Visit: Yes Status: Chronic Qualifiers: Protein-calorie malnutrition severity: severe Plan to address problem: Secondary to cancer Moderate malnutrition Dietitian consult requested (5) Hypertension Current Visit: Yes Status: Chronic Qualifiers: Hypertension type: essential hypertension Qualified Code(s): I10 - Essential (primary) hypertension Plan to address problem: Continue antihypertensives (6) Anticoagulation adequate Current Visit: Yes Status: Chronic Plan to address problem: Continue ELIQUIS for DVTs in the past (7) Hyponatremia Current Visit: Yes Status: Acute Plan to address problem: Mild Secondary to vomiting IV normal saline for now (8) DVT prophylaxis Current Visit: Yes Status: Acute Plan to address problem: Patient on ELIQUIS and GI prophylaxis
[2018-11-09] MEDS ORDERED: K-DUR PO SCH (22:00)
[2018-11-09] MEDS ORDERED: NON-FORMULARY (Sacubitril/Valsartan [Entresto 97 Mg-103 Mg Tablet] 1 EACH) PO SCH ×2 (22:00)
[2018-11-09] MEDS: ENTRESTO 24 - 26 MG PO SCH (23:04)
[2018-11-09] MEDS: ELIQUIS PO SCH (23:20)
[2018-11-09] MEDS: COREG PO SCH (23:22)
[2018-11-09] MEDS: LASIX PO SCH (23:23)
--- NOTE | 2018-11-10 08:27 | Progress Note ---
Assessment and Plan Assessment and plan: Patient is a 53 yo man with a history of tobacco dependency, chf, cva, dm type 2, hypertension, ?dvt on eliquis and dyslipidemia who presents to [facility] ED with abd pains, intermittent n/v and weight loss. * CT ABDOMEN AND PELVIS WITH CONTRAST HISTORY: Lower abdominal pain with nausea vomiting and diarrhea for 2 weeks COMPARISON: None. TECHNIQUE: Axial CT images were obtained through the abdomen and pelvis after 100 cc of Omnipaque 300 intravenously. Sagittal and coronal reformatted images. All CT scans at this location are performed using CT dose reduction for ALARA by means of automated exposure control. FINDINGS: CT ABDOMEN: Lung Bases: Clear. Liver: The liver is enlarged. There are numerous hypodense liver masses throughout the liver parenchyma. The largest mass measures up to 9.4 cm in diameter and the left hepatic lobe. The hepatic veins and portal venous system are patent. No underlying parenchymal liver disease is appreciated. Biliary: No significant abnormality. Spleen: No significant abnormality. Unenlarged. Pancreas: No significant abnormality. Adrenals: No significant abnormality. Kidneys: No significant abnormality. 1 cm cyst near the inferior pole of the right kidney is noted. Lymphatics: No lymphadenopathy. Vasculature: The arterial and venous structures are patent. Dual IVCs are noted. Bowel/Peritoneum: The bowel loops are poorly delineated secondary to decreased peritoneal fat and lack of oral contrast. No obvious GI mass is appreciated. No evidence for obstruction. There is moderate pelvic ascites. No free air. The appendix is not confidently identified. CT PELVIS: : No significant abnormality. Osseous Structures: Moderate to severe degenerative disc disease is identified at L4-5. No fracture or suspicious bony lesion is identified. Additional Findings: None IMPRESSION: Hepatomegaly with multiple liver masses concerning for a metastatic process. -Abdominal pains most likely related to Liver metastasis: no Heme/Onc available here, consult GI -Hepatomegaly with liver masses concerning for metastasis -Mild Malnutrition, poa -H/O CHF on Entresto, which is not available here: consult his Cardiology group. -?H/o DVT on Eliquis, which must be taking in consideration with getting tissue biospy of the liver, will await GI recommendation -Hypertension: continue antihypertensives. -Malignant cachexia -Hyponatremia: on IVF but must consider CHF history and watch for fluid overload DVT prophylaxis: Patient on ELIQUIS Daughter Jocelyne is Nurse general manager food at [employer] [facility], the Eliquis maybe due to Cardiomyopathy and stroke prevention instead of DVT. Patient says he is followed by [facility], will consult them to further investigate chf, cmp with eliquis stroke prophylaxis. Patient will need to be off Eliquis for any scopy or tissue bx. History Interval history: Patient was seen and examined. Follow-up on current diagnosis Abd pain/n/v. No overnight events reported to me. Patient denies any chest pain, shortness breath, or severe headaches. Imaging, nursing note, chart, labs and old chart reviewed. Discussed with patient. Hospitalist Physical - Physical exam Narrative exam: Gen: thin NAD, Awake, Alert, Orientated HEENT: NCAT, EOMI, PERRL, OP Clear Neck: supple, no adenopathy, no thyromegaly, no JVD CVS/Heart: RRR, normal S1S2, pulses present bilaterally Chest/Lungs: CTA B, Symmetrical chest expansion, good air entry bilaterally GI/Abdomen: soft, NTND, good bowel sounds, no guarding or rebound /Bladder: no suprapubic tenderness, no CVA or paraspinal tenderness Extermity/Skin: no c/c/e, no obvious rash MSK: FROM x 4 Neuro: CN 2-12 grossly intact, no new focal deficits Psych: calm - Constitutional Vitals: Temp Pulse Resp BP Pulse Ox 97.5 F L 95 H 20 138/75 98 11/10/18 05:10 11/10/18 05:10 11/10/18 05:10 11/10/18 05:10 11/10/18 05:10 General appearance: Present: no acute distress. Absent: well-nourished Results - Labs CBC & Chem 7: 11/09/18 10:51 11/09/18 10:51 Labs: Laboratory Last Values WBC 7.9 K/mm3 (4.5-11.0) 11/09/18 10:51 RBC 3.98 M/mm3 (3.65-5.03) 11/09/18 10:51 Hgb 13.0 gm/dl (11.8-15.2) 11/09/18 10:51 Hct 38.1 % (35.5-45.6) 11/09/18 10:51 MCV 96 fl (84-94) H 11/09/18 10:51 MCH 33 pg (28-32) H 11/09/18 10:51 MCHC 34 % (32-34) 11/09/18 10:51 RDW 14.9 % (13.2-15.2) 11/09/18 10:51 Plt Count 50 K/mm3 (140-440) L 11/09/18 10:51 Lymph % (Auto) 14.8 % (13.4-35.0) 11/09/18 10:51 [place] % (Auto) 8.9 % (0.0-7.3) H 11/09/18 10:51 Eos % (Auto) 0.2 % (0.0-4.3) 11/09/18 10:51 Baso % (Auto) 0.4 % (0.0-1.8) 11/09/18 10:51 Lymph # 1.2 K/mm3 (1.2-5.4) 11/09/18 10:51 [place] # 0.7 K/mm3 (0.0-0.8) 11/09/18 10:51 Eos # 0.0 K/mm3 (0.0-0.4) 11/09/18 10:51 Baso # 0.0 K/mm3 (0.0-0.1) 11/09/18 10:51 Seg Neutrophils % 75.7 % (40.0-70.0) H 11/09/18 10:51 Seg Neutrophils # 6.0 K/mm3 (1.8-7.7) 11/09/18 10:51 Sodium 136 mmol/L (137-145) L 11/09/18 10:51 Potassium 5.0 mmol/L (3.6-5.0) 11/09/18 10:51 Chloride 101.2 mmol/L (98-107) 11/09/18 10:51 Carbon Dioxide 21 mmol/L (22-30) L 11/09/18 10:51 19 mmol/L 11/09/18 10:51 BUN 28 mg/dL (9-20) H 11/09/18 10:51 1.0 mg/dL (0.8-1.5) 11/09/18 10:51 Estimated GFR > 60 ml/min 11/09/18 10:51 28 % 11/09/18 10:51 Glucose 92 mg/dL (75-100) 11/09/18 10:51 POC Glucose 91 (70-105) 11/09/18 15:29 Calcium 10.6 mg/dL (8.4-10.2) H 11/09/18 10:51 0.90 mg/dL (0.1-1.2) 11/09/18 10:51 AST 198 units/L (5-40) H 11/09/18 10:51 ALT 54 units/L (7-56) 11/09/18 10:51 238 units/L (35-129) H 11/09/18 10:51 7.8 g/dL (6.3-8.2) 11/09/18 10:51 3.7 g/dL (3.9-5) L 11/09/18 10:51 0.9 % 11/09/18 10:51 178 units/L (13-60) H 11/09/18 10:51 Active Medications - Current Medications Current Medications: Generic Name Dose Route Start Last Admin Trade Name Freq PRN Reason Stop Dose Admin Apixaban 5 mg 11/09/18 22:00 11/09/18 23:20 Eliquis PO 5 mg BID WENDY Administration Protocol Atorvastatin Calcium 40 mg 11/09/18 18:15 Lipitor PO DAILY WENDY Carvedilol 6.25 mg 11/09/18 22:00 11/09/18 23:22 Coreg PO 6.25 mg BID WENDY Administration Furosemide 40 mg 11/09/18 22:00 11/09/18 23:23 Lasix PO 40 mg BID WENDY Administration Pneumococcal Polyvalent Vaccine 0.5 ml 11/10/18 12:00 Pneumovax 23 IM 11/10/18 12:01 .ONCE ONE Promethazine HCl 25 mg 11/09/18 18:07 11/09/18 23:17 Phenergan PO 25 mg Q6HR PRN Administration Nausea
[2018-11-10] MEDS: ENTRESTO 24 - 26 MG PO SCH (10:00)
[2018-11-10] MEDS: LASIX PO SCH (10:00)
--- NOTE | 2018-11-10 10:20 | Gastroenterology Consultation ---
History of Present Illness - Reason for Consult Consult date: 11/10/18 liver mets? Requesting physician: HAYLEE SLADE - History of Present Illness Patient is a 53 y/o male with PMH of anxiety/depression, astham, DM, migraines, H/o DVT (on Eliquis), HTN, CHF, and HLD who presented to ED with c/o abdominal pain, intermittent N/V, and significant wt loss over the past year. Upon admission, abd CT showed multiple liver masses concerning for a metastatic process to which GI has been consulted. Patient is previously known to our service with an OV last year on 07/21/17 for hepatitis C found on routine blood work a year previously and for a colon screening, however patient was lost to follow up w/o ever having tx for HCV or colonoscopy. This morning patient was resting in bed w/o acute distress with family at bedside. Denies fever, CP, dysphagia, jaundice, hematemesis, melena, diarrhea, or constipation. Admits to intermittent bright red blood mixed in stool but no active bleeding in ~3 weeks. Has a hx of heavy ETOH but denies active use. Fhx of colon cancer with maternal grandmother. Past History Past Medical History: other (as per HPI) Past Surgical History: Other (ear) Social history: smoking, other (marijuana, alcohol?) Family history: cancer (colon-maternal grandmother), hypertension Medications and Allergies Allergies Allergy/AdvReac Type Severity Reaction Status Date / Time Penicillins Allergy Swelling Verified 06/16/13 21:57 Home Medications Medication Instructions Recorded Confirmed Last Taken Type Apixaban [Eliquis] 5 mg PO BID 10/31/18 11/09/18 11/07/18 History AtorvaSTATin [Lipitor] 40 mg PO DAILY 10/31/18 11/09/18 11/07/18 History Carvedilol [Coreg] 6.25 mg PO BID 10/31/18 11/09/18 11/07/18 History Furosemide [Lasix TAB] 40 mg PO BID 10/31/18 11/09/18 10/31/18 History Sacubitril/Valsartan [Entresto 97 1 each PO BID 10/31/18 11/09/18 11/07/18 History mg-103 mg Tablet] Promethazine [Phenergan] 25 mg PO Q6HR PRN 11/09/18 11/09/18 11/07/18 History Active Meds: Active Medications Apixaban (Eliquis) 5 mg PO BID [facility]; Protocol Last Admin: 11/09/18 23:20 Dose: 5 mg Documented by: Atorvastatin Calcium (Lipitor) 40 mg PO DAILY [facility] Carvedilol (Coreg) 6.25 mg PO BID [facility] Last Admin: 11/09/18 23:22 Dose: 6.25 mg Documented by: Furosemide (Lasix) 40 mg PO BID [facility] Last Admin: 11/09/18 23:23 Dose: 40 mg Documented by: Pneumococcal Polyvalent Vaccine (Pneumovax 23) 0.5 ml IM .ONCE ONE Stop: 11/10/18 12:01 Promethazine HCl (Phenergan) 25 mg PO Q6HR PRN PRN Reason: Nausea Last Admin: 11/09/18 23:17 Dose: 25 mg Documented by: medications reviewed/updated as required Review of Systems - Review of Systems All systems: negative Constitutional: weight loss, weakness, poor appetite Gastrointestinal: abdominal pain, nausea, vomiting, hematochezia Exam - Constitutional Vital Signs: Temp Pulse Resp BP Pulse Ox 97.5 F L 95 H 20 138/75 98 11/10/18 05:10 11/10/18 05:10 11/10/18 05:10 11/10/18 05:10 11/10/18 05:10 General appearance: no acute distress, cachectic - EENT Eyes: PERRL, EOM intact ENT: hearing intact - Respiratory Respiratory effort: normal - Cardiovascular Rhythm: regular - Gastrointestinal General gastrointestinal: Present: soft, non-tender, non-distended, normal bowel sounds - Neurologic Neurological: alert and oriented x3 - Labs CBC & Chem 7: 11/09/18 10:51 11/09/18 10:51 Lab Results: Laboratory Results - last 24 hr 11/09/18 11/09/18 11/09/18 10:33 10:51 10:51 WBC 7.9 RBC 3.98 Hgb 13.0 Hct 38.1 MCV 96 H MCH 33 H MCHC 34 RDW 14.9 Plt Count 50 L Lymph % (Auto) 14.8 [place] % (Auto) 8.9 H Eos % (Auto) 0.2 Baso % (Auto) 0.4 Lymph # 1.2 [place] # 0.7 Eos # 0.0 Baso # 0.0 Seg Neutrophils % 75.7 H Seg Neutrophils # 6.0 Sodium 136 L Potassium 5.0 Chloride 101.2 Carbon Dioxide 21 L Anion Gap 19 BUN 28 H Creatinine 1.0 Estimated GFR > 60 BUN/Creatinine Ratio 28 Glucose 92 POC Glucose 81 Calcium 10.6 H Total Bilirubin 0.90 AST 198 H ALT 54 Alkaline Phosphatase 238 H Total Protein 7.8 Albumin 3.7 L Albumin/Globulin Ratio 0.9 Lipase 11/09/18 11/09/18 10:51 15:29 WBC RBC Hgb Hct MCV MCH MCHC RDW Plt Count Lymph % (Auto) [place] % (Auto) Eos % (Auto) Baso % (Auto) Lymph # [place] # Eos # Baso # Seg Neutrophils % Seg Neutrophils # Sodium Potassium Chloride Carbon Dioxide Anion Gap BUN Creatinine Estimated GFR BUN/Creatinine Ratio Glucose POC Glucose 91 Calcium Total Bilirubin AST ALT Alkaline Phosphatase Total Protein Albumin Albumin/Globulin Ratio Lipase 178 H Assessment and Plan 1.liver mets? 2.abdominal pain 3.N/V 4.hematochezia (no active bleeding x ~3 weeks per pt report; H/H WNL) 5.chronic hepatitis C (treatment naive) 6.Fhx of colon CA (maternal grandmother) -abd CT showed multiple liver masses concerning for metastasis -etiology unclear- possible colon primary vs HCC vs other -recommend oncology consult -will order tumor marker and schedule for colon tomorrow for further evaluation -hold Eliquis for procedure -okay for clears today then NPO after MN -INR in am along with acute hepatitis panel -continue supportive care -will follow
[2018-11-10] MEDS: ELIQUIS PO SCH (10:54)
[2018-11-10] MEDS: COREG PO SCH (11:51)
[2018-11-10] MEDS ORDERED: PNEUMOVAX 23 IM ONE (12:00)
[2018-11-10] MEDS ORDERED: GOLYTELY PO ONE (12:42)
[2018-11-10] MEDS: ZOFRAN IV PRN ×2 (14:51→19:07)
[2018-11-10] MEDS ORDERED: NACL 0.9% 1000 ML 1,000 ML ONE (19:04)
--- NOTE | 2018-11-11 00:55 | XRay Report ---
ABDOMEN 1 VIEW INDICATION / CLINICAL INFORMATION: NG tube placement. COMPARISON: CT of the abdomen and pelvis with contrast from 11/09/2018. FINDINGS: TUBES / LINES: A Dobbhoff tube terminates over the gastric body. BOWEL GAS PATTERN: No significant abnormality. FREE AIR / EXTRALUMINAL GAS: None seen. ADDITIONAL FINDINGS: No significant additional findings. IMPRESSION: The NG tube tip projects over the gastric body and may be advanced approximately 13 cm to reach the d uodenum. Signer Name: Ricki Iqbal MD Signed: 11/11/2018 12:51 AM Workstation Name: [id number]
[2018-11-11] MEDS: ZOFRAN IV PRN ×3 (01:50→19:39)
[2018-11-11] MEDS: COREG PO SCH ×3 (02:01→23:56)
[2018-11-11] MEDS: ENTRESTO 24 - 26 MG PO SCH ×3 (02:01→23:56)
[2018-11-11] MEDS: LASIX PO SCH ×2 (02:02→23:23)
[2018-11-11 06:04] LABS: INR 1.78 (0.87-1.13)
[2018-11-11 06:09] LABS: BUN/Creatinine Ratio 45; Blood Urea Nitrogen 50 mg/dL (9-20); Calcium 10.7 mg/dL (8.4-10.2); Hemolysis Index 0
[2018-11-11] MEDS ORDERED: WATER FOR IRRIG STERILE ONE (06:33)
[2018-11-11] MEDS ORDERED: WATER FOR IRRIG STERILE IR ONE (06:33)
[2018-11-11 06:38] LABS: Hepatitis A Antibody IgM Non-Reactive (NonReactive); Hepatitis B Core IgM Non-Reactive (NonReactive); Hepatitis B Surface Antigen Non-Reactive (Negative); Hepatitis C Virus Antibody Non-Reactive (NonReactive)
[2018-11-11] MEDS ORDERED: NACL 0.9% 1000 ML 1,000 ML IV SCH (07:30)
[2018-11-11] MEDS: MORPHINE IV PRN ×2 (09:12→19:02)
--- NOTE | 2018-11-11 10:50 | Gastroenterology Progress Note ---
Assessment and Plan GI: probable metastatic cancer w/ liver mets - pt didn't do prep for colonoscopy and feels won't be able to do Mag citrate prep - cancer markers pending - awaiting Oncology input - would do ct guided liver bx mass ion Tuesday - no other changes at this time, will follow Subjective Date of service: 11/11/18 Interval history: - reports cannot take prep for colonoscopy. Denies other specific complaints Objective - Constitutional Vitals: Temp Pulse Resp BP Pulse Ox 98.1 F 98 H 20 151/74 97 11/11/18 05:18 11/11/18 05:18 11/11/18 05:18 11/11/18 05:18 11/11/18 05:18 General appearance: no acute distress - EENT Eyes: PERRL - Respiratory Respiratory: bilateral: CTA - Cardiovascular Rhythm: regular Heart Sounds: Present: S1 & S2 - Gastrointestinal General gastrointestinal: Present: soft, non-tender, non-distended - Labs CBC & Chem 7: 11/09/18 10:51 11/11/18 05:31 Labs: Laboratory Results - last 24 hr 11/10/18 11/10/18 11/11/18 12:01 16:30 05:31 PT 20.3 H INR 1.78 H Sodium Potassium Chloride Carbon Dioxide Anion Gap BUN Creatinine Estimated GFR BUN/Creatinine Ratio Glucose POC Glucose 82 103 Calcium Hepatitis A IgM Ab Hep Bs Antigen Hep B Core IgM Ab Hepatitis C Antibody 11/11/18 11/11/18 05:31 05:31 PT INR Sodium 142 Potassium 5.1 H Chloride 105.4 Carbon Dioxide 24 Anion Gap 18 BUN 50 H Creatinine 1.1 Estimated GFR > 60 BUN/Creatinine Ratio 45 Glucose 100 POC Glucose Calcium 10.7 H Hepatitis A IgM Ab Non-reactive Hep Bs Antigen Non-reactive Hep B Core IgM Ab Non-reactive Hepatitis C Antibody Non-reactive
--- NOTE | 2018-11-11 10:54 | Consultation ---
History of Present Illness Consult date: 11/11/18 Consult reason: congestive heart failure, known to you History of present illness: The patient is a 53-year-old man with a history of hepatitis C, admitted to the hospital with complaints of abdominal pain nausea and vomiting. A CT scan of the abdomen is reported to show multiple masses in the liver consistent with liver metastasis. The primary is not yet certain. GI evaluation is in progress. Other pertinent findings include multiple laboratory abnormalities with an INR of 1.78, elevated liver transaminases in the 200s, elevated lipase of 178, and also significantly thrombocytopenia with a platelet count of 50. Cardiac consultation was requested for evaluation of "cardiomyopathy/CHF". According to history obtained from family members at bedside, the patient has a history of "congestive heart failure", and follows up regularly with his primary public policy mediator Dr. Hooks. He is also on oral anticoagulation with Eliquis presumably for paroxysmal atrial fibrillation. On this presentation, the patient has no chest pain, no shortness of breath, no lower extremity edema. He appears frail and cachectic, but otherwise breathing comfortably on room air. Chest x-ray has not been performed, EKG is a normal sinus rhythm, left ventricular hypertrophy, poor R-wave progression with no acute ST or T wave changes. Past History Past Medical History: heart failure, other (as per HPI) Social history: smoking, other (marijuana, alcohol?) Family history: cancer (colon-maternal grandmother), hypertension Medications and Allergies Allergies Allergy/AdvReac Type Severity Reaction Status Date / Time Penicillins Allergy Swelling Verified 06/16/13 21:57 Home Medications Medication Instructions Recorded Confirmed Last Taken Type Apixaban [Eliquis] 5 mg PO BID 10/31/18 11/09/18 11/07/18 History AtorvaSTATin [Lipitor] 40 mg PO DAILY 10/31/18 11/09/18 11/07/18 History Carvedilol [Coreg] 6.25 mg PO BID 10/31/18 11/09/18 11/07/18 History Furosemide [Lasix TAB] 40 mg PO BID 10/31/18 11/09/18 10/31/18 History Sacubitril/Valsartan [Entresto 97 1 each PO BID 10/31/18 11/09/18 11/07/18 History mg-103 mg Tablet] Promethazine [Phenergan] 25 mg PO Q6HR PRN 11/09/18 11/09/18 11/07/18 History Active Meds: Active Medications Atorvastatin Calcium (Lipitor) 40 mg PO DAILY [facility] Last Admin: 11/10/18 10:00 Dose: Not Given Documented by: Carvedilol (Coreg) 6.25 mg PO BID [facility] Last Admin: 11/11/18 02:01 Dose: Not Given Documented by: Furosemide (Lasix) 40 mg PO BID [facility] Last Admin: 11/11/18 02:02 Dose: Not Given Documented by: Heparin Sodium (Porcine) (Heparin) 5,000 unit SUB-Q Q12HR [facility] Last Admin: 11/11/18 10:43 Dose: 5,000 unit Documented by: Sodium Chloride (Nacl 0.9% 1000 Ml) 1,000 mls @ 50 mls/hr IV DIRECT [facility] Morphine Sulfate (Morphine) 1 mg IV Q4H PRN PRN Reason: Pain, Moderate (4-6) Last Admin: 11/11/18 09:12 Dose: 1 mg Documented by: Ondansetron HCl (Zofran) 4 mg IV Q4H PRN PRN Reason: Nausea And Vomiting Last Admin: 11/11/18 10:42 Dose: 4 mg Documented by: Promethazine HCl (Phenergan) 25 mg PO Q6HR PRN PRN Reason: Nausea Last Admin: 11/09/18 23:17 Dose: 25 mg Documented by: Review of Systems Cardiovascular: no chest pain, no orthopnea, no palpitations, no rapid/irregular heart beat, no edema, no syncope, no lightheadedness, no shortness of breath Physical Examination Vital Signs Temp Pulse Resp BP Pulse Ox 97.8 F 103 H 16 136/73 100 11/09/18 10:27 11/09/18 10:27 11/09/18 10:27 11/09/18 10:27 11/09/18 10:27 General appearance: no acute distress, cachectic HEENT: Positive: PERRL Neck: Positive: neck supple Cardiac: Positive: Reg Rate and Rhythm Lungs: Positive: Decreased Breath Sounds Neuro: Positive: Grossly Intact Abdomen: Positive: Soft Male genitourinary: Positive: deferred Skin: Positive: Clear Extremities: Absent: edema Results 11/09/18 10:51 11/11/18 05:31 Coagulation 11/11/18 Range/Units 05:31 PT 20.3 H (12.2-14.9) Sec. INR 1.78 H (0.87-1.13) Comprehensive Metabolic Panel 11/11/18 Range/Units 05:31 Sodium 142 (137-145) mmol/L Potassium 5.1 H (3.6-5.0) mmol/L Chloride 105.4 (98-107) mmol/L Carbon Dioxide 24 (22-30) mmol/L BUN 50 H (9-20) mg/dL Creatinine 1.1 (0.8-1.5) mg/dL Glucose 100 (75-100) mg/dL Calcium 10.7 H (8.4-10.2) mg/dL EKG interpretations - Telemetry EKG Rhythm: Sinus Rhythm Assessment and Plan - Patient Problems (1) Abdominal pain Current Visit: Yes Status: Acute Plan to address problem: Patient presented with abdominal pain nausea vomiting, CT scan of the abdomen reports evidence of metastatic liver disease. There are no cardiac complaints, no active cardiac issues, no cardiac workup this indicated at this time. (2) Thrombocytopenia Current Visit: Yes Status: Acute Plan to address problem: Due to thrombocytopenia with a platelet count of 50,000 and active liver disease, patient is not a candidate for continued oral anticoagulation therapy. I have informed the family members that the patient's Eliquis will have to be discontinued for high risk of bleeding. (3) History of heart failure Current Visit: Yes Status: Acute Plan to address problem: Continue other heart failure medical therapy as outlined by his primary cardi ologist Dr. Hooks. Otherwise, no further cardiac evaluation, will follow on a when necessary basis.
[2018-11-11] MEDS ORDERED: HEPARIN SUB-Q SCH (11:00)
--- NOTE | 2018-11-11 11:14 | Progress Note ---
Assessment and Plan Assessment and plan: Patient is a 53 yo man with a history of tobacco dependency, chf, cva, dm type 2, hypertension, pAFib on Eliquis and dyslipidemia who presents to [facility] ED with abd pains, intermittent n/v and weight loss. * CT ABDOMEN AND PELVIS WITH CONTRAST HISTORY: Lower abdominal pain with nausea vomiting and diarrhea for 2 weeks COMPARISON: None. TECHNIQUE: Axial CT images were obtained through the abdomen and pelvis after 100 cc of Omnipaque 300 intravenously. Sagittal and coronal reformatted images. All CT scans at this location are performed using CT dose reduction for ALARA by means of automated exposure control. FINDINGS: CT ABDOMEN: Lung Bases: Clear. Liver: The liver is enlarged. There are numerous hypodense liver masses throughout the liver parenchyma. The largest mass measures up to 9.4 cm in diameter and the left hepatic lobe. The hepatic veins and portal venous system are patent. No underlying parenchymal liver disease is appreciated. Biliary: No significant abnormality. Spleen: No significant abnormality. Unenlarged. Pancreas: No significant abnormality. Adrenals: No significant abnormality. Kidneys: No significant abnormality. 1 cm cyst near the inferior pole of the right kidney is noted. Lymphatics: No lymphadenopathy. Vasculature: The arterial and venous structures are patent. Dual IVCs are noted. Bowel/Peritoneum: The bowel loops are poorly delineated secondary to decreased peritoneal fat and lack of oral contrast. No obvious GI mass is appreciated. No evidence for obstruction. There is moderate pelvic ascites. No free air. The appendix is not confidently identified. CT PELVIS: : No significant abnormality. Osseous Structures: Moderate to severe degenerative disc disease is identified at L4-5. No fracture or suspicious bony lesion is identified. Additional Findings: None IMPRESSION: Hepatomegaly with multiple liver masses concerning for a metastatic process. -Abdominal pains most likely related to Liver metastasis: no Heme/Onc available here, consult GI -Hepatomegaly with liver masses concerning for metastasis -Mild Malnutrition, poa -H/O CHF on Entresto, which is not available here: consult his Cardiology group. -?pAFib on Eliquis, no DVT which must be taking in consideration with getting tissue biospy of the liver, will await GI recommendation -Hypertension: continue antihypertensives. -Malignant cachexia -Hyponatremia: on IVF but must consider CHF history and watch for fluid overload DVT prophylaxis: Patient on ELIQUIS d/w with mother and cousin Nadine at bedside and Daughter Tabitha over the phone, who is Nurse client support manager at [employer] [facility] [employer], the Eliquis maybe due to Cardiomyopathy and stroke prevention instead of DVT. Patient says he is followed by [facility], will consult them to further investigate chf, cmp with eliquis stroke prophylaxis. Patient will need to be off Eliquis for any scopy or tissue bx. GI evaluated and ordered for colonoscopy today and ngt placed but pt still unable to tolerate the prep due to continous n/v. There was report of coffee ground emesis, I did notify GI dr. Clayton, I ordered iv ppi bid, iv reglan, npo, dextrose ivffor nutrition but careful with CHF history, stat cbc, consulted Heme/Onc CCT 34 minutes. History Interval history: Patient was seen and examined. Follow-up on current diagnosis Abd pain/n/v. No overnight events reported to me. Patient denies any chest pain, shortness breath, or severe headaches. Imaging, nursing note, chart, labs and old chart reviewed. Discussed with patient. Hospitalist Physical - Physical exam Narrative exam: Gen: thin NAD, Awake, Alert, Orientated HEENT: NCAT, EOMI, PERRL, OP Clear Neck: supple, no adenopathy, no thyromegaly, no JVD CVS/Heart: RRR, normal S1S2, pulses present bilaterally Chest/Lungs: CTA B, Symmetrical chest expansion, good air entry bilaterally GI/Abdomen: soft, HSM, diffuse tenderness, good bowel sounds, no guarding or rebound /Bladder: no suprapubic tenderness, no CVA or paraspinal tenderness Extermity/Skin: no c/c/e, no obvious rash MSK: FROM x 4 Neuro: CN 2-12 grossly intact, no new focal deficits Psych: calm - Constitutional Vitals: Temp Pulse Resp BP Pulse Ox 98.1 F 98 H 20 151/74 97 11/11/18 05:18 11/11/18 05:18 11/11/18 05:18 11/11/18 05:18 11/11/18 05:18 General appearance: Present: no acute distress, cachectic Results - Labs CBC & Chem 7: 11/09/18 10:51 11/11/18 05:31 Labs: Laboratory Last Values WBC 7.9 K/mm3 (4.5-11.0) 11/09/18 10:51 RBC 3.98 M/mm3 (3.65-5.03) 11/09/18 10:51 Hgb 13.0 gm/dl (11.8-15.2) 11/09/18 10:51 Hct 38.1 % (35.5-45.6) 11/09/18 10:51 MCV 96 fl (84-94) H 11/09/18 10:51 MCH 33 pg (28-32) H 11/09/18 10:51 MCHC 34 % (32-34) 11/09/18 10:51 RDW 14.9 % (13.2-15.2) 11/09/18 10:51 Plt Count 50 K/mm3 (140-440) L 11/09/18 10:51 Lymph % (Auto) 14.8 % (13.4-35.0) 11/09/18 10:51 [place] % (Auto) 8.9 % (0.0-7.3) H 11/09/18 10:51 Eos % (Auto) 0.2 % (0.0-4.3) 11/09/18 10:51 Baso % (Auto) 0.4 % (0.0-1.8) 11/09/18 10:51 Lymph # 1.2 K/mm3 (1.2-5.4) 11/09/18 10:51 [place] # 0.7 K/mm3 (0.0-0.8) 11/09/18 10:51 Eos # 0.0 K/mm3 (0.0-0.4) 11/09/18 10:51 Baso # 0.0 K/mm3 (0.0-0.1) 11/09/18 10:51 Seg Neutrophils % 75.7 % (40.0-70.0) H 11/09/18 10:51 Seg Neutrophils # 6.0 K/mm3 (1.8-7.7) 11/09/18 10:51 PT 20.3 Sec. (12.2-14.9) H 11/11/18 05:31 INR 1.78 (0.87-1.13) H 11/11/18 05:31 Sodium 142 mmol/L (137-145) 11/11/18 05:31 Potassium 5.1 mmol/L (3.6-5.0) H 11/11/18 05:31 Chloride 105.4 mmol/L (98-107) 11/11/18 05:31 Carbon Dioxide 24 mmol/L (22-30) 11/11/18 05:31 18 mmol/L 11/11/18 05:31 BUN 50 mg/dL (9-20) H 11/11/18 05:31 1.1 mg/dL (0.8-1.5) 11/11/18 05:31 Estimated GFR > 60 ml/min 11/11/18 05:31 45 % 11/11/18 05:31 Glucose 100 mg/dL (75-100) 11/11/18 05:31 POC Glucose 103 (70-105) 11/10/18 16:30 Calcium 10.7 mg/dL (8.4-10.2) H 11/11/18 05:31 0.90 mg/dL (0.1-1.2) 11/09/18 10:51 AST 198 units/L (5-40) H 11/09/18 10:51 ALT 54 units/L (7-56) 11/09/18 10:51 238 units/L (35-129) H 11/09/18 10:51 7.8 g/dL (6.3-8.2) 11/09/18 10:51 3.7 g/dL (3.9-5) L 11/09/18 10:51 0.9 % 11/09/18 10:51 178 units/L (13-60) H 11/09/18 10:51 Hepatitis A IgM Ab Non-reactive (NonReactive) 11/11/18 05:31 Hep Bs Antigen Non-reactive (Negative) 11/11/18 05:31 Hep B Core IgM Ab Non-reactive (NonReactive) 11/11/18 05:31 Non-reactive (NonReactive) 11/11/18 05:31 Active Medications - Current Medications Current Medications: Generic Name Dose Route Start Last Admin Trade Name Freq PRN Reason Stop Dose Admin Atorvastatin Calcium 40 mg 11/09/18 18:15 11/10/18 10:00 Lipitor PO Not Given DAILY [facility] Carvedilol 6.25 mg 11/09/18 22:00 11/11/18 02:01 Coreg PO Not Given BID [facility] Furosemide 40 mg 11/09/18 22:00 11/11/18 02:02 Lasix PO Not Given BID [facility] Sodium Chloride 1,000 mls @ 50 mls/hr 11/11/18 07:30 Nacl 0.9% 1000 Ml IV DIRECT [facility] Morphine Sulfate 1 mg 11/11/18 08:58 11/11/18 09:12 Morphine IV 1 mg Q4H PRN Administration Pain, Moderate (4-6) Ondansetron HCl 4 mg 11/10/18 14:43 11/11/18 10:42 Zofran IV 4 mg Q4H PRN Administration Nausea And Vomiting Promethazine HCl 25 mg 11/09/18 18:07 11/09/18 23:17 Phenergan PO 25 mg Q6HR PRN Administration Nausea Nutrition/Malnutrition Assess - Dietary Evaluation Nutrition/Malnutrition Findings: Nutrition Notes Start: 11/10/18 22:00 Freq: Status: Active Protocol: Document 11/10/18 22:00 RM (Rec: 11/10/18 22:06 [id number]) Nutrition Notes Need for Assessment generated from: [facility] Initial or Follow up Assessment Current Diagnosis Hypertension,Heart Failure, Stroke Other Pertinent Diagnosis Liver metastasis Current Diet NPO Labs/Tests Reviewed Pertinent Medications Zofran Height 5 ft 7.2 in Weight 57.5 kg Skipwith Body Weight (kg) 67.81 BMI 19.7 Subjective/Other Information Screened for malnutrition. 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 Noted temporal wasting. 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 No Is Patient Ambulatory and/or Out of Bed Yes REE-([place]-. Jeor-ambulatory/OOB) [ 1809.353 [id number]] Calculation Used for Recommendations [facility] Additional Notes Protein Needs: 69-86g (1.2-1. 5g/kg) Fluid Needs: 1 ml/kcal Nutrition Intervention Change Diet Order: Diet advancement/Consider TPN if diet not advanced by next visit Add Supplement/Snack (indicate name/kcal Ensure Clear 1 daily if diet /protein ) advanced Provides kCal: 240 Provides Protein (gm) 8 Goal #1 Diet advancement Anticipated Discharge Needs: Unable to determine at this time Follow-Up By: 11/13/18 Additional Comments Follow for diet advancement
[2018-11-11] MEDS: D5/0.45NS 1,000 ML IV SCH ×2 (12:15→23:52)
[2018-11-11] MEDS: PROTONIX IV SCH ×2 (12:19→23:54)
[2018-11-11] MEDS: REGLAN IV PRN (12:19)
[2018-11-11 12:34] LABS: Hematocrit 29.5 % (35.5-45.6); Hemoglobin 10.2 gm/dl (11.8-15.2); Mean Corpuscular HGB Conc 35 % (32-34); Mean Corpuscular Hemoglobin 33 pg (28-32); Mean Corpuscular Volume 95 fl (84-94); Red Blood Count 3.09 M/mm3 (3.65-5.03)
[2018-11-11 12:40] LABS: Platelet Count 41 K/mm3 (140-440)
--- NOTE | 2018-11-11 17:23 | Consultation ---
History of Present Illness - Reason for Consult Consult date: 11/11/18 Liver mass/lesion/cytopenias. - History of Present Illness Thank you for this consult, patient seen/examined, resting in bed, records reviewed, case d/w patient. Kindly asked to see for the reasons above. CT of ABD/pelvic revealed a large left lobe liver mass/multiple lesions.patient currently on anti coagulation.There is significant wt loss. Will await tissue bx urgently needed. Patient will need MRI otherwise, as well as perhaps PET CT outpatient, if diagnostic bx not done, of inconclusive ,for some unknown reason.Pls see other w/up labs/tumor lakers. GI scope yielded no source.labs with macrocytosis. Past History Past Medical History: heart failure, other (as per HPI) Past Surgical History: Other (ear) Social history: smoking, other (marijuana, alcohol?) Family history: cancer (colon-maternal grandmother), hypertension Medications and Allergies Allergies Allergy/AdvReac Type Severity Reaction Status Date / Time Penicillins Allergy Swelling Verified 06/16/13 21:57 Home Medications Medication Instructions Recorded Confirmed Last Taken Type Apixaban [Eliquis] 5 mg PO BID 10/31/18 11/09/18 11/07/18 History AtorvaSTATin [Lipitor] 40 mg PO DAILY 10/31/18 11/09/18 11/07/18 History Carvedilol [Coreg] 6.25 mg PO BID 10/31/18 11/09/18 11/07/18 History Furosemide [Lasix TAB] 40 mg PO BID 10/31/18 11/09/18 10/31/18 History Sacubitril/Valsartan [Entresto 97 1 each PO BID 10/31/18 11/09/18 11/07/18 Hi story mg-103 mg Tablet] Promethazine [Phenergan] 25 mg PO Q6HR PRN 11/09/18 11/09/18 11/07/18 History Active Meds: Active Medications Carvedilol (Coreg) 6.25 mg PO BID [facility] Last Admin: 11/11/18 14:10 Dose: 6.25 mg Documented by: Dextrose/Sodium Chloride (D5/0.45ns) 1,000 mls @ 75 mls/hr IV DIRECT [facility] Last Admin: 11/11/18 12:15 Dose: 75 mls/hr Documented by: Metoclopramide HCl (Reglan) 10 mg IV Q8H PRN PRN Reason: Nausea And Vomiting Last Admin: 11/11/18 12:19 Dose: 10 mg Documented by: Morphine Sulfate (Morphine) 1 mg IV Q4H PRN PRN Reason: Pain, Moderate (4-6) Last Admin: 11/11/18 09:12 Dose: 1 mg Documented by: Ondansetron HCl (Zofran) 4 mg IV Q4H PRN PRN Reason: N/V unrelieved by Reglan Pantoprazole Sodium (Protonix) 40 mg IV BID [facility] Last Admin: 11/11/18 12:19 Dose: 40 mg Documented by: Review of Systems Constitutional: fatigue, weakness Gastrointestinal: abdominal pain, nausea Exam - Constitutional Vitals: Temp Pulse Resp BP Pulse Ox 98.3 F 101 H 18 142/67 93 11/11/18 12:11 11/11/18 12:11 11/11/18 12:11 11/11/18 12:11 11/11/18 12:11 General appearance: Present: mild distress - EENT Eyes: Present: PERRL ENT: hearing intact, clear oral mucosa - Neck Neck: Present: supple, normal ROM - Respiratory Respiratory effort: normal Respiratory: bilateral: CTA - Cardiovascular Heart Sounds: Present: S1 & S2. Absent: rub, click - Extremities Extremities: pulses symmetrical, No edema Peripheral Pulses: within normal limits - Abdominal General gastrointestinal: Present: soft, non-tender, non-distended, normal bowel sounds Male genitourinary: Present: deferred - Rectal Rectal Exam: deferred - Integumentary Integumentary: Present: clear, warm, dry - Musculoskeletal Musculoskeletal: gait normal, strength equal bilaterally - Psychiatric Psychiatric: appropriate mood/affect, intact judgment & insight - Neurologic Neurologic: CNII-XII intact, moves all extremities Results - Labs CBC & Chem 7: 11/11/18 11:46 11/11/18 05:31 Labs: Abnormal lab results 11/11/18 11/11/18 11/11/18 Range/Units 05:31 05:31 11:46 RBC 3.09 L (3.65-5.03) M/mm3 Hgb 10.2 L (11.8-15.2) gm/dl Hct 29.5 L D (35.5-45.6) % MCV 95 H (84-94) fl MCH 33 H (28-32) pg MCHC 35 H (32-34) % Plt Count 41 L (140-440) K/mm3 PT 20.3 H (12.2-14.9) Sec. INR 1.78 H (0.87-1.13) Potassium 5.1 H (3.6-5.0) mmol/L BUN 50 H (9-20) mg/dL Calcium 10.7 H (8.4-10.2) mg/dL Assessment and Plan - Patient Problems (1) Abdominal pain Current Visit: Yes Status: Acute Plan to address problem: Due to the lesions. (2) Liver masses Current Visit: Yes Status: Acute Plan to address problem: same (3) Liver metastasis Current Visit: Yes Status: Acute Plan to address problem: follow w/up results.await bx. (4) Thrombocytopenia Current Visit: Yes Status: Acute Plan to address problem: due to liver lesions.
[2018-11-11] MEDS ORDERED: ATIVAN IV PRN (18:54)
[2018-11-11 19:25] LABS: Iron 44 ug/dL (49-181); Total Iron Binding Capacity 179 mcg/dL (250-450)
[2018-11-11] MEDS: HABITROL TD SCH (23:53)
[2018-11-12] MEDS: ZOFRAN IV PRN (02:43)
[2018-11-12] MEDS: MORPHINE IV PRN ×4 (02:43→21:40)
[2018-11-12] MEDS: HABITROL TD SCH (11:00)
[2018-11-12] MEDS: PROTONIX IV SCH (11:00)
[2018-11-12] MEDS: COREG PO SCH ×2 (11:00→21:40)
[2018-11-12] MEDS: ENTRESTO 24 - 26 MG PO SCH ×2 (11:01→21:40)
--- NOTE | 2018-11-12 11:57 | Progress Note ---
Assessment and Plan Assessment and plan: Patient is a 53 yo man with a history of tobacco dependency, chf, cva, dm type 2, hypertension, pAFib on Eliquis and dyslipidemia who presents to [facility] with abd pains, intermittent n/v and weight loss. * CT ABDOMEN AND PELVIS WITH CONTRAST HISTORY: Lower abdominal pain with nausea vomiting and diarrhea for 2 weeks COMPARISON: None. TECHNIQUE: Axial CT images were obtained through the abdomen and pelvis after 100 cc of Omnipaque 300 intravenously. Sagittal and coronal reformatted images. All CT scans at this location are performed using CT dose reduction for ALARA by means of automated exposure control. FINDINGS: CT ABDOMEN: Lung Bases: Clear. Liver: The liver is enlarged. There are numerous hypodense liver masses throughout the liver parenchyma. The largest mass measures up to 9.4 cm in diameter and the left hepatic lobe. The hepatic veins and portal venous system are patent. No underlying parenchymal liver disease is appreciated. Biliary: No significant abnormality. Spleen: No significant abnormality. Unenlarged. Pancreas: No significant abnormality. Adrenals: No significant abnormality. Kidneys: No significant abnormality. 1 cm cyst near the inferior pole of the right kidney is noted. Lymphatics: No lymphadenopathy. Vasculature: The arterial and venous structures are patent. Dual IVCs are noted. Bowel/Peritoneum: The bowel loops are poorly delineated secondary to decreased peritoneal fat and lack of oral contrast. No obvious GI mass is appreciated. No evidence for obstruction. There is moderate pelvic ascites. No free air. The appendix is not confidently identified. CT PELVIS: : No significant abnormality. Osseous Structures: Moderate to severe degenerative disc disease is identified at L4-5. No fracture or suspicious bony lesion is identified. Additional Findings: None IMPRESSION: Hepatomegaly with multiple liver masses concerning for a metastatic process. -Abdominal pains most likely related to Liver metastasis: no Heme/Onc available here, consult GI -Hepatomegaly with liver masses concerning for metastasis -Mild Malnutrition, poa -H/O CHF on Entresto, which is not available here: consult his Cardiology group. -?pAFib on Eliquis, no DVT which must be taking in consideration with getting tissue biospy of the liver, will await GI recommendation -Hypertension: continue antihypertensives. -Malignant cachexia -Hyponatremia: on IVF but must consider CHF history and watch for fluid overload DVT prophylaxis: Patient on ELIQUIS 11/11/18 d/w with mother and cousin Nadine at bedside and sister Tabitha over the phone, who is Nurse computer project manager at [employer] [facility] [employer], the Eliquis maybe due to Cardiomyopathy and stroke prevention instead of DVT. Patient says he is followed by [facility], will consult them to further investigate chf, cmp with eliquis stroke prophylaxis. Patient will need to be off Eliquis for any scopy or tissue bx. GI evaluated and ordered for colonoscopy today and ngt placed but pt still unable to tolerate the prep due to continous n/v. There was report of coffee ground emesis, I did notify GI dr. Clayton, I ordered iv ppi bid, iv reglan, npo, dextrose ivffor nutrition but careful with CHF history, stat cbc, consulted Heme/Onc MRI pelvis pending tissue bx tomorrow History Interval history: Patient was seen and examined. Follow-up on current diagnosis Abd pain/n/v. No overnight events reported to me. Patient denies any chest pain, shortness breath, or severe headaches. Imaging, nursing note, chart, labs and old chart reviewed. Discussed with patient. Hospitalist Physical - Physical exam Narrative exam: Gen: thin NAD, Awake, Alert, Orientated HEENT: NCAT, EOMI, PERRL, OP Clear Neck: supple, no adenopathy, no thyromegaly, no JVD CVS/Heart: RRR, normal S1S2, pulses present bilaterally Chest/Lungs: CTA B, Symmetrical chest expansion, good air entry bilaterally GI/Abdomen: soft, HSM, diffuse tenderness, good bowel sounds, no guarding or rebound /Bladder: no suprapubic tenderness, no CVA or paraspinal tenderness Extermity/Skin: no c/c/e, no obvious rash MSK: FROM x 4 Neuro: CN 2-12 grossly intact, no new focal deficits Psych: calm - Constitutional Vitals: Temp Pulse Resp BP Pulse Ox 97.4 F L 101 H 17 139/72 97 11/12/18 05:34 11/12/18 11:00 11/12/18 05:34 11/12/18 11:00 11/12/18 05:34 General appearance: Present: cachectic. Absent: mild distress Results - Labs CBC & Chem 7: 11/11/18 11:46 11/11/18 05:31 Labs: Laboratory Last Values WBC 9.0 K/mm3 (4.5-11.0) 11/11/18 11:46 RBC 3.09 M/mm3 (3.65-5.03) L 11/11/18 11:46 Hgb 10.2 gm/dl (11.8-15.2) L 11/11/18 11:46 Hct 29.5 % (35.5-45.6) L D 11/11/18 11:46 MCV 95 fl (84-94) H 11/11/18 11:46 MCH 33 pg (28-32) H 11/11/18 11:46 MCHC 35 % (32-34) H 11/11/18 11:46 RDW 15.0 % (13.2-15.2) 11/11/18 11:46 Plt Count 41 K/mm3 (140-440) L 11/11/18 11:46 Lymph % (Auto) 14.8 % (13.4-35.0) 11/09/18 10:51 Finney % (Auto) 8.9 % (0.0-7.3) H 11/09/18 10:51 Eos % (Auto) 0.2 % (0.0-4.3) 11/09/18 10:51 Baso % (Auto) 0.4 % (0.0-1.8) 11/09/18 10:51 Lymph # 1.2 K/mm3 (1.2-5.4) 11/09/18 10:51 Finney # 0.7 K/mm3 (0.0-0.8) 11/09/18 10:51 Eos # 0.0 K/mm3 (0.0-0.4) 11/09/18 10:51 Baso # 0.0 K/mm3 (0.0-0.1) 11/09/18 10:51 Seg Neutrophils % 75.7 % (40.0-70.0) H 11/09/18 10:51 Seg Neutrophils # 6.0 K/mm3 (1.8-7.7) 11/09/18 10:51 PT 20.3 Sec. (12.2-14.9) H 11/11/18 05:31 INR 1.78 (0.87-1.13) H 11/11/18 05:31 Sodium 142 mmol/L (137-145) 11/11/18 05:31 Potassium 5.1 mmol/L (3.6-5.0) H 11/11/18 05:31 Chloride 105.4 mmol/L (98-107) 11/11/18 05:31 Carbon Dioxide 24 mmol/L (22-30) 11/11/18 05:31 18 mmol/L 11/11/18 05:31 BUN 50 mg/dL (9-20) H 11/11/18 05:31 1.1 mg/dL (0.8-1.5) 11/11/18 05:31 Estimated GFR > 60 ml/min 11/11/18 05:31 45 % 11/11/18 05:31 Glucose 100 mg/dL (75-100) 11/11/18 05:31 POC Glucose 103 (70-105) 11/10/18 16:30 Calcium 10.7 mg/dL (8.4-10.2) H 11/11/18 05:31 Iron 44 ug/dL (49-181) L 11/11/18 17:41 TIBC 179 mcg/dL (250-450) L 11/11/18 17:41 0.90 mg/dL (0.1-1.2) 11/09/18 10:51 AST 198 units/L (5-40) H 11/09/18 10:51 ALT 54 units/L (7-56) 11/09/18 10:51 238 units/L (35-129) H 11/09/18 10:51 1460 units/L (91-180) H 11/11/18 17:41 11.90 mg/dL (0.00-1.30) H 11/11/18 17:41 7.8 g/dL (6.3-8.2) 11/09/18 10:51 3.7 g/dL (3.9-5) L 11/09/18 10:51 0.9 % 11/09/18 10:51 178 units/L (13-60) H 11/09/18 10:51 Vitamin B12 718.5 pg/mL (211-911) 11/11/18 17:41 Hepatitis A IgM Ab Non-reactive (NonReactive) 11/11/18 05:31 Hep Bs Antigen Non-reactive (Negative) 11/11/18 05:31 Hep B Core IgM Ab Non-reactive (NonReactive) 11/11/18 05:31 Non-reactive (NonReactive) 11/11/18 05:31 Active Medications - Current Medications Current Medications: Generic Name Dose Route Start Last Admin Trade Name Freq PRN Reason Stop Dose Admin Carvedilol 6.25 mg 11/09/18 22:00 11/12/18 11:00 Coreg PO 6.25 mg BID WENDY Administration Dextrose/Sodium Chloride 1,000 mls @ 75 mls/hr 11/11/18 12:00 11/11/18 23:52 D5/0.45ns IV 75 mls/hr DIRECT WENDY Administration Lorazepam 0.25 mg 11/11/18 18:54 Ativan IV Q8H PRN Agitation Metoclopramide HCl 10 mg 11/11/18 11:14 11/11/18 12:19 Reglan IV 10 mg Q8H PRN Administration Nausea And Vomiting Morphine Sulfate 1 mg 11/11/18 08:58 11/12/18 08:05 Morphine IV 1 mg Q4H PRN Administration Pain, Moderate (4-6) Nicotine 14 mg 11/11/18 20:00 11/12/18 11:00 Habitrol TD 14 mg QDAY WENDY Administration Ondansetron HCl 4 mg 11/11/18 11:14 11/12/18 02:43 Zofran IV 4 mg Q4H PRN Administration N/V unrelieved by Reglan Pantoprazole Sodium 40 mg 11/11/18 12:00 11/12/18 11:00 Protonix IV 40 mg BID WENDY Administration Nutrition/Malnutrition Assess - Dietary Evaluation Nutrition/Malnutrition Findings: Nutrition Notes Start: 11/10/18 22:00 Freq: Status: Active Protocol: Document 11/10/18 22:00 RM (Rec: 11/10/18 22:06 [email or web address]) Nutrition Notes Need for Assessment generated from: [facility] Initial or Follow up Assessment Current Diagnosis Hypertension,Heart Failure, Stroke Other Pertinent Diagnosis Liver metastasis Current Diet NPO Labs/Tests Reviewed Pertinent Medications Zofran Height 5 ft 7.2 in Weight 57.5 kg [place] Body Weight (kg) 67.81 BMI 19.7 Subjective/Other Information Screened for malnutrition. Pt stated that INTERMISSION COORDINATOR his appetite was poor and that he ate 1 meal daily X 2 weeks. Admitted to N/V and being unable to keep liquids down INTERMISSION COORDINATOR. Noted temporal wasting. Percent of energy/protein needs met: 0%/0% Burn Absent Trauma Absent Minimum of two criteria Yes Energy Intake (non-severe) <75% Estimated Energy Requirement >7 days Muscle Mass Mild Depletion (non-severe) #1 Nutrition Diagnosis Malnutrition Etiology liver metastasis, N/V As Evidenced by Signs and Symptoms temporal wasting, pt statement that INTERMISSION COORDINATOR he ate 1 meal daily X 2 weeks Is patient on ventilator? No Is Patient Ambulatory and/or Out of Bed Yes REE-([facility]-ambulatory/OOB) [ 1809.353 [id number]] Calculation Used for Recommendations [facility] Additional Notes Protein Needs: 69-86g (1.2-1. 5g/kg) Fluid Needs: 1 ml/kcal Nutrition Intervention Change Diet Order: Diet advancement/Consider TPN if diet not advanced by next visit Add Supplement/Snack (indicate name/kcal Ensure Clear 1 daily if diet /protein ) advanced Provides kCal: 240 Provides Protein (gm) 8 Goal #1 Diet advancement Anticipated Discharge Needs: Unable to determine at this time Follow-Up By: 11/13/18 Additional Comments Follow for diet advancement
[2018-11-12] MEDS: D5/0.45NS 1,000 ML IV SCH (13:42)
--- NOTE | 2018-11-12 14:52 | Progress Note ---
Assessment and Plan - Patient Problems (1) Abdominal pain Current Visit: Yes Status: Acute Plan to address problem: Due to the lesions. (2) Liver masses Current Visit: Yes Status: Acute Plan to address problem: same (3) Liver metastasis Current Visit: Yes Status: Acute Plan to address problem: follow w/up results.await bx. (4) Thrombocytopenia Current Visit: Yes Status: Acute Plan to address problem: due to liver lesions. further w/up in progress. Subjective Date of service: 11/12/18 Interval history: Patient seen, resting in bed, labs reviewed, some more labs ordered. Still awaiting Liver bx., for tissue dx.I have d/w patient/family. Objective - Constitutional Vitals: Vital Signs - 12hr 11/12/18 11/12/18 11/12/18 03:13 05:34 11:00 Temperature 97.4 F L Pulse Rate 103 H 101 H Respiratory 18 17 Rate Blood Pressure 140/74 139/72 O2 Sat by Pulse 97 Oximetry 11/12/18 12:12 Temperature 98.4 F Pulse Rate 101 H Respiratory 18 Rate Blood Pressure 150/80 O2 Sat by Pulse 93 Oximetry General appearance: Present: mild distress - EENT Eyes: PERRL, EOM intact ENT: hearing intact, clear oral mucosa Ears: bilateral: normal - Neck Neck: supple, normal ROM - Respiratory Respiratory effort: normal Respiratory: bilateral: CTA - Breasts Breasts: deferred - Cardiovascular Rhythm: regular Heart Sounds: Present: S1 & S2. Absent: gallop, rub Extremities: pulses intact, No edema, normal color, Full ROM - Gastrointestinal General gastrointestinal: Present: soft, non-tender, non-distended, normal bowel sounds Rectal Exam: deferred - Genitourinary Male genitourinary: deferred - Integumentary Integumentary: clear, warm, dry - Musculoskeletal Musculoskeletal: 1, strength equal bilaterally - Neurologic Neurologic: moves all extremities - Psychiatric Psychiatric: appropriate mood/affect - Labs CBC & Chem 7: 11/11/18 11:46 11/11/18 05:31 Labs: Abnormal lab results 11/11/18 11/11/18 Range/Units 17:41 17:41 Iron 44 L (49-181) ug/dL TIBC 179 L (250-450) mcg/dL Lactate Dehydrogenase 1460 H (91-180) units/L C-Reactive Protein 11.90 H (0.00-1.30) mg/dL Medications & Allergies - Medications Allergies/Adverse Reactions: Allergies Penicillins Allergy (Verified 06/16/13 21:57) Swelling Home Medications: Home Medications Medication Instructions Recorded Confirmed Last Taken Type Apixaban [Eliquis] 5 mg PO BID 10/31/18 11/09/18 11/07/18 History AtorvaSTATin [Lipitor] 40 mg PO DAILY 10/31/18 11/09/18 11/07/18 History Carvedilol [Coreg] 6.25 mg PO BID 10/31/18 11/09/18 11/07/18 History Furosemide [Lasix TAB] 40 mg PO BID 10/31/18 11/09/18 10/31/18 History Sacubitril/Valsartan [Entresto 97 1 each PO BID 10/31/18 11/09/18 11/07/18 History mg-103 mg Tablet] Promethazine [Phenergan] 25 mg PO Q6HR PRN 11/09/18 11/09/18 11/07/18 History Active Medications: Generic Name Dose Route Start Last Admin Trade Name Freq PRN Reason Stop Dose Admin Carvedilol 6.25 mg 11/09/18 22:00 11/12/18 11:00 Coreg PO 6.25 mg BID WENDY Administration Dextrose/Sodium Chloride 1,000 mls @ 75 mls/hr 11/11/18 12:00 11/12/18 13:42 D5/0.45ns IV 75 mls/hr DIRECT WENDY Administration Lorazepam 0.25 mg 11/11/18 18:54 Ativan IV Q8H PRN Agitation Metoclopramide HCl 10 mg 11/11/18 11:14 11/11/18 12:19 Reglan IV 10 mg Q8H PRN Administration Nausea And Vomiting Morphine Sulfate 1 mg 11/11/18 08:58 11/12/18 12:34 Morphine IV 1 mg Q4H PRN Administration Pain, Moderate (4-6) Nicotine 14 mg 11/11/18 20:00 11/12/18 11:00 Habitrol TD 14 mg QDAY WENDY Administration Ondansetron HCl 4 mg 11/11/18 11:14 11/12/18 02:43 Zofran IV 4 mg Q4H PRN Administration N/V unrelieved by Reglan Pantoprazole Sodium 40 mg 11/11/18 12:00 11/12/18 11:00 Protonix IV 40 mg BID WENDY Administration
[2018-11-12 17:11] LABS: Iron 41 ug/dL (49-181); Total Iron Binding Capacity 176 mcg/dL (250-450)
--- NOTE | 2018-11-12 17:31 | Gastroenterology Progress Note ---
Assessment and Plan D/w patient and family, they do not want to pursue colonoscopy, so patient to have liver biopsy of the lesions to obtain tissue and be able to start therapy. I will therefore sign off, please call back with any questions or concerns - Patient Problems (1) Abdominal pain Current Visit: Yes Status: Acute (2) Liver metastasis Current Visit: Yes Status: Acute Subjective Date of service: 11/12/18 Interval history: Patient in bed, weak Objective - Constitutional Vitals: Temp Pulse Resp BP Pulse Ox 98.4 F 101 H 18 150/80 93 11/12/18 12:12 11/12/18 12:12 11/12/18 12:12 11/12/18 12:12 11/12/18 12:12 General appearance: temporal muscle wasting - Gastrointestinal General gastrointestinal: Present: soft - Labs CBC & Chem 7: 11/11/18 11:46 11/11/18 05:31 Labs: Laboratory Results - last 24 hr 11/11/18 11/11/18 11/11/18 17:41 17:41 17:41 Iron 44 L TIBC 179 L Ferritin Lactate Dehydrogenase 1460 H C-Reactive Protein 11.90 H Vitamin B12 718.5 Hepatitis C Antibody 11/12/18 11/12/18 11/12/18 16:31 16:31 16:31 Iron 41 L TIBC 176 L Ferritin Lactate Dehydrogenase C-Reactive Protein Vitamin B12 852.8 Hepatitis C Antibody Non-reactive 11/12/18 16:31 Iron TIBC Ferritin 491.4 H Lactate Dehydrogenase C-Reactive Protein Vitamin B12 Hepatitis C Antibody
[2018-11-12] MEDS: REGLAN IV PRN (21:40)
[2018-11-12 21:53] LABS: Hematocrit 24.8 % (35.5-45.6); Hemoglobin 8.5 gm/dl (11.8-15.2); Mean Corpuscular HGB Conc 34 % (32-34); Mean Corpuscular Hemoglobin 33 pg (28-32); Mean Corpuscular Volume 97 fl (84-94); Red Blood Count 2.55 M/mm3 (3.65-5.03); Red Cell Distribution Width 15.2 % (13.2-15.2)
[2018-11-12 21:54] LABS: Platelet Count 35 K/mm3 (140-440)
[2018-11-13] MEDS: PROTONIX 80 MG in NACL 0.9% 100 ML IV SCH ×2 (01:22→17:40)
[2018-11-13] MEDS: D5/0.45NS 1,000 ML IV SCH (05:34)
[2018-11-13 08:32] LABS: Hematocrit 22.9 % (35.5-45.6); Hemoglobin 7.9 gm/dl (11.8-15.2); Mean Corpuscular HGB Conc 34 % (32-34); Mean Corpuscular Hemoglobin 33 pg (28-32); Mean Corpuscular Volume 97 fl (84-94); Red Blood Count 2.36 M/mm3 (3.65-5.03); Red Cell Distribution Width 15.3 % (13.2-15.2)
[2018-11-13 08:44] LABS: INR 2.5 (0.87-1.13)
[2018-11-13 08:55] LABS: BUN/Creatinine Ratio 64; Blood Urea Nitrogen 70 mg/dL (9-20); Calcium 10.3 mg/dL (8.4-10.2); Hemolysis Index 27
[2018-11-13 09:22] LABS: Platelet Count 29 K/mm3 (140-440)
[2018-11-13] MEDS: MORPHINE IV PRN (10:26)
[2018-11-13] MEDS: HABITROL TD SCH (10:26)
[2018-11-13] MEDS ORDERED: MORPHINE IV PRN (14:54)
--- NOTE | 2018-11-13 14:54 | Progress Note ---
Assessment and Plan Assessment and plan: Patient is a 53 yo man with a history of tobacco dependency, chf, cva, dm type 2, hypertension, pAFib on Eliquis and dyslipidemia who presents to [facility] ED with abd pains, intermittent n/v and weight loss. * CT ABDOMEN AND PELVIS WITH CONTRAST HISTORY: Lower abdominal pain with nausea vomiting and diarrhea for 2 weeks COMPARISON: None. TECHNIQUE: Axial CT images were obtained through the abdomen and pelvis after 100 cc of Omnipaque 300 intravenously. Sagittal and coronal reformatted images. All CT scans at this location are performed using CT dose reduction for ALARA by means of automated exposure control. FINDINGS: CT ABDOMEN: Lung Bases: Clear. Liver: The liver is enlarged. There are numerous hypodense liver masses throughout the liver parenchyma. The largest mass measures up to 9.4 cm in diameter and the left hepatic lobe. The hepatic veins and portal venous system are patent. No underlying parenchymal liver disease is appreciated. Biliary: No significant abnormality. Spleen: No significant abnormality. Unenlarged. Pancreas: No significant abnormality. Adrenals: No significant abnormality. Kidneys: No significant abnormality. 1 cm cyst near the inferior pole of the right kidney is noted. Lymphatics: No lymphadenopathy. Vasculature: The arterial and venous structures are patent. Dual IVCs are noted. Bowel/Peritoneum: The bowel loops are poorly delineated secondary to decreased peritoneal fat and lack of oral contrast. No obvious GI mass is appreciated. No evidence for obstruction. There is moderate pelvic ascites. No free air. The appendix is not confidently identified. CT PELVIS: : No significant abnormality. Osseous Structures: Moderate to severe degenerative disc disease is identified at L4-5. No fracture or suspicious bony lesion is identified. Additional Findings: None IMPRESSION: Hepatomegaly with multiple liver masses concerning for a metastatic process. -Abdominal pains most likely related to Liver metastasis: no Heme/Onc available here, consult GI -Hepatomegaly with liver masses concerning for metastasis -Mild Malnutrition, poa -Hyperkalemia: stop Entresto, add kayexalate -H/O CHF on Entresto, which is not available here: consult his Cardiology group. -?pAFib on Eliquis, no DVT which must be taking in consideration with getting tissue biospy of the liver, will await GI recommendation -Hypertension: continue antihypertensives. -Malignant cachexia -Hyponatremia: on IVF but must consider CHF history and watch for fluid overload DVT prophylaxis: hold ELIQUIS 11/11/18 d/w with mother and cousin Nadine at bedside and sister Tabitha over the phone, who is Nurse software developer manager at [employer] [facility] [employer], the Eliquis maybe due to Cardiomyopathy and stroke prevention instead of DVT. Patient says he is followed by [facility], will consult them to further investigate chf, cmp with eliquis stroke prophylaxis. Patient will need to be off Eliquis for any scopy or tissue bx. GI evaluated and ordered for colonoscopy today and ngt placed but pt still unable to tolerate the prep due to continuous n/v. There was report of coffee ground emesis, I did notify GI dr. Clayton, I ordered iv ppi bid, iv reglan, npo, dextrose ivffor nutrition but careful with CHF history, stat cbc, consulted Heme/Onc MRI pelvis pending, unable to be done today because he is to sleepy, so stopped IV ativan 0.25 mg liver bx unable to be done because thrombocytopenia, hematology is following History Interval history: Patient was seen and examined. Follow-up on current diagnosis Abd pain/n/v. No overnight events reported to me. Patient denies any chest pain, shortness breath, or severe headaches. Imaging, nursing note, chart, labs and old chart reviewed. Discussed with patient. Hospitalist Physical - Physical exam Narrative exam: Gen: thin NAD, Awake, Alert, Orientated HEENT: NCAT, EOMI, PERRL, OP Clear Neck: supple, no adenopathy, no thyromegaly, no JVD CVS/Heart: RRR, normal S1S2, pulses present bilaterally Chest/Lungs: CTA B, Symmetrical chest expansion, good air entry bilaterally GI/Abdomen: distended, HSM, diffuse tenderness, good bowel sounds, no guarding or rebound /Bladder: no suprapubic tenderness, no CVA or paraspinal tenderness Extermity/Skin: no c/c/e, no obvious rash MSK: FROM x 4 Neuro: CN 2-12 grossly intact, no new focal deficits Psych: calm - Constitutional Vitals: Temp Pulse Resp BP Pulse Ox 98.3 F 117 H 20 141/61 94 11/13/18 12:16 11/13/18 12:16 11/13/18 12:16 11/12/18 23:34 11/13/18 12:16 General appearance: Absent: mild distress, well-nourished Results - Labs CBC & Chem 7: 11/13/18 07:57 11/13/18 07:57 Labs: Laboratory Last Values WBC 10.9 K/mm3 (4.5-11.0) 11/13/18 07:57 RBC 2.36 M/mm3 (3.65-5.03) L 11/13/18 07:57 Hgb 7.9 gm/dl (11.8-15.2) L 11/13/18 07:57 Hct 22.9 % (35.5-45.6) L 11/13/18 07:57 MCV 97 fl (84-94) H 11/13/18 07:57 MCH 33 pg (28-32) H 11/13/18 07:57 MCHC 34 % (32-34) 11/13/18 07:57 RDW 15.3 % (13.2-15.2) H 11/13/18 07:57 Plt Count 29 K/mm3 (140-440) L 11/13/18 07:57 Lymph % (Auto) 14.8 % (13.4-35.0) 11/09/18 10:51 [place]ether % (Auto) 8.9 % (0.0-7.3) H 11/09/18 10:51 Eos % (Auto) 0.2 % (0.0-4.3) 11/09/18 10:51 Baso % (Auto) 0.4 % (0.0-1.8) 11/09/18 10:51 Lymph # 1.2 K/mm3 (1.2-5.4) 11/09/18 10:51 Meriwether # 0.7 K/mm3 (0.0-0.8) 11/09/18 10:51 Eos # 0.0 K/mm3 (0.0-0.4) 11/09/18 10:51 Baso # 0.0 K/mm3 (0.0-0.1) 11/09/18 10:51 Seg Neutrophils % 75.7 % (40.0-70.0) H 11/09/18 10:51 Seg Neutrophils # 6.0 K/mm3 (1.8-7.7) 11/09/18 10:51 PT 26.5 Sec. (12.2-14.9) H 11/13/18 07:57 INR 2.50 (0.87-1.13) H 11/13/18 07:57 Sodium 147 mmol/L (137-145) H 11/13/18 07:57 Potassium 5.8 mmol/L (3.6-5.0) H 11/13/18 07:57 Chloride 110.4 mmol/L (98-107) H 11/13/18 07:57 Carbon Dioxide 16 mmol/L (22-30) L D 11/13/18 07:57 26 mmol/L 11/13/18 07:57 BUN 70 mg/dL (9-20) H 11/13/18 07:57 1.1 mg/dL (0.8-1.5) 11/13/18 07:57 Estimated GFR > 60 ml/min 11/13/18 07:57 64 % 11/13/18 07:57 Glucose 89 mg/dL (75-100) 11/13/18 07:57 POC Glucose 103 (70-105) 11/10/18 16:30 Calcium 10.3 mg/dL (8.4-10.2) H 11/13/18 07:57 Iron 41 ug/dL (49-181) L 11/12/18 16:31 TIBC 176 mcg/dL (250-450) L 11/12/18 16:31 491.4 ng/mL (13.0-400.0) H 11/12/18 16:31 0.90 mg/dL (0.1-1.2) 11/09/18 10:51 AST 198 units/L (5-40) H 11/09/18 10:51 ALT 54 units/L (7-56) 11/09/18 10:51 238 units/L (35-129) H 11/09/18 10:51 1460 units/L (91-180) H 11/11/18 17:41 11.90 mg/dL (0.00-1.30) H 11/11/18 17:41 7.8 g/dL (6.3-8.2) 11/09/18 10:51 3.7 g/dL (3.9-5) L 11/09/18 10:51 0.9 % 11/09/18 10:51 178 units/L (13-60) H 11/09/18 10:51 Vitamin B12 852.8 pg/mL (211-911) 11/12/18 16:31 8.37 ng/mL (7.3-26.0) 11/12/18 16:31 Hepatitis A IgM Ab Non-reactive (NonReactive) 11/11/18 05:31 Hep Bs Antigen Non-reactive (Negative) 11/11/18 05:31 Hep B Core IgM Ab Non-reactive (NonReactive) 11/11/18 05:31 Non-reactive (NonReactive) 11/12/18 16:31 Active Medications - Current Medications Current Medications: Generic Name Dose Route Start Last Admin Trade Name Freq PRN Reason Stop Dose Admin Carvedilol 6.25 mg 11/09/18 22:00 11/12/18 21:40 Coreg PO 6.25 mg BID WENDY Administration Dextrose/Sodium Chloride 1,000 mls @ 75 mls/hr 11/11/18 12:00 11/13/18 05:34 D5/0.45ns IV 75 mls/hr DIRECT WENDY Administration Pantoprazole Sodium 80 mg/ 100 mls @ 10 mls/hr 11/12/18 18:00 11/13/18 01:22 Sodium Chloride IV 8 mg/hr DIRECT WENDY 10 mls/hr Administration 8 MG/HR Lorazepam 0.25 mg 11/11/18 18:54 Ativan IV Q8H PRN Agitation Metoclopramide HCl 10 mg 11/11/18 11:14 11/12/18 21:40 Reglan IV 10 mg Q8H PRN Administration Nausea And Vomiting Morphine Sulfate 1 mg 11/11/18 08:58 11/13/18 10:26 Morphine IV 1 mg Q4H PRN Administration Pain, Moderate (4-6) Nicotine 14 mg 11/11/18 20:00 11/13/18 10:26 Habitrol TD 14 mg QDAY WENDY Administration Ondansetron HCl 4 mg 11/11/18 11:14 11/12/18 02:43 Zofran IV 4 mg Q4H PRN Administration N/V unrelieved by Reglan Nutrition/Malnutrition Assess - Dietary Evaluation Nutrition/Malnutrition Findings: Nutrition Notes Start: 11/10/18 22:00 Freq: Status: Active Protocol: Document 11/10/18 22:00 RM (Rec: 11/10/18 22:06 RM [id number]) Nutrition Notes Need for Assessment generated from: [facility] Initial or Follow up Assessment Current Diagnosis Hypertension,Heart Failure, Stroke Other Pertinent Diagnosis Liver metastasis Current Diet NPO Labs/Tests Reviewed Pertinent Medications Zofran Height 5 ft 7.2 in Weight 57.5 kg [place] Body Weight (kg) 67.81 BMI 19.7 Subjective/Other Information Screened for malnutrition. 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 Noted temporal wasting. 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 No Is Patient Ambulatory and/or Out of Bed Yes REE-([place]-St. or-ambulatory/OOB) [ 1809.353 [id number]] Calculation [facility] Additional Notes Protein Needs: 69-86g (1.2-1. 5g/kg) Fluid Needs: 1 ml/kcal Nutrition Intervention Change Diet Order: Diet advancement/Consider TPN if diet not advanced by next visit Add Supplement/Snack (indicate name/kcal Ensure Clear 1 daily if diet /protein ) advanced Provides kCal: 240 Provides Protein (gm) 8 Goal #1 Diet advancement Anticipated Discharge Needs: Unable to determine at this time Follow-Up By: 11/13/18 Additional Comments Follow for diet advancement
[2018-11-13] MEDS ORDERED: KIONEX PR ONE (15:00)
[2018-11-13] MEDS: COREG PO SCH ×2 (16:27→21:27)
[2018-11-13 18:29] VITALS: BP 136/60
--- NOTE | 2018-11-13 19:29 | Gastroenterology Progress Note ---
Assessment and Plan Patient would benefit from EGD given clinical concern for upper GI bleed, however cannot perform due to severe thrombocytopenia as do not recommend endoscopy when platelets are below 50 (ideally would be 75 or above) Continue PPI and close monitoring and transfuse PRN - Patient Problems (1) Abdominal pain Current Visit: Yes Status: Acute (2) Liver metastasis Current Visit: Yes Status: Acute Subjective Date of service: 11/13/18 Interval history: Patient in bed, weak. He reportedly had melena and did have drop in Hgb, concerning for possible upper GI bleed. Objective - Constitutional Vitals: Temp Pulse Resp BP Pulse Ox 98.0 F 113 H 24 136/60 97 11/13/18 17:07 11/13/18 17:07 11/13/18 17:07 11/13/18 17:07 11/13/18 17:07 General appearance: temporal muscle wasting - Respiratory Respiratory: bilateral: diminished - Cardiovascular Rhythm: regular - Gastrointestinal General gastrointestinal: Present: hypoactive bowel sounds (mild firmness on palpation) - Labs CBC & Chem 7: 11/13/18 07:57 11/13/18 07:57 Labs: Laboratory Results - last 24 hr 11/12/18 11/13/18 11/13/18 21:13 07:57 07:57 WBC 10.9 10.9 RBC 2.55 L 2.36 L Hgb 8.5 L 7.9 L Hct 24.8 L 22.9 L MCV 97 H 97 H MCH 33 H 33 H MCHC 34 34 RDW 15.2 15.3 H Plt Count 35 L 29 L PT INR Sodium 147 H Potassium 5.8 H Chloride 110.4 H Carbon Dioxide 16 L D Anion Gap 26 BUN 70 H Creatinine 1.1 Estimated GFR > 60 BUN/Creatinine Ratio 64 Glucose 89 Calcium 10.3 H 11/13/18 07:57 WBC RBC Hgb Hct MCV MCH MCHC RDW Plt Count PT 26.5 H INR 2.50 H Sodium Potassium Chloride Carbon Dioxide Anion Gap BUN Creatinine Estimated GFR BUN/Creatinine Ratio Glucose Calcium
--- NOTE | 2018-11-13 19:47 | Progress Note ---
Assessment and Plan - Patient Problems (1) Abdominal pain Current Visit: Yes Status: Acute Plan to address problem: Due to the lesions. (2) Liver masses Current Visit: Yes Status: Acute Plan to address problem: same (3) Liver metastasis Current Visit: Yes Status: Acute Plan to address problem: follow w/up results.await bx. (4) Thrombocytopenia Current Visit: Yes Status: Acute Plan to address problem: due to liver lesions. further w/up in progress. see note. Subjective Date of service: 11/13/18 Interval history: Patient seen, resting in bed, labs reviewed, some more labs ordered. Still await ing Liver bx., for tissue dx.I have d/w patient/family. Patient seen/examined, resting in bed, Bx not done , due to low plt, may replace plt if needed for any procedure. Objective - Constitutional Vitals: Vital Signs - 12hr 11/13/18 11/13/18 11/13/18 12:16 16:27 17:07 Temperature 98.3 F 98.0 F Pulse Rate 117 H 117 H 113 H Respiratory 20 24 Rate Blood Pressure 141/61 136/60 O2 Sat by Pulse 94 97 Oximetry General appearance: Present: mild distress, cachectic - EENT Eyes: PERRL, EOM intact ENT: hearing intact, clear oral mucosa Ears: bilateral: normal - Neck Neck: supple, normal ROM - Respiratory Respiratory effort: normal Respiratory: bilateral: CTA - Breasts Breasts: deferred - Cardiovascular Rhythm: regular Heart Sounds: Present: S1 & S2. Absent: gallop, rub Extremities: pulses intact, No edema, normal color, Full ROM - Gastrointestinal General gastrointestinal: Present: soft, non-tender, non-distended, normal bowel sounds Rectal Exam: deferred - Genitourinary Male genitourinary: deferred - Integumentary Integumentary: clear, warm, dry - Musculoskeletal Musculoskeletal: 1, strength equal bilaterally - Neurologic Neurologic: moves all extremities - Psychiatric Psychiatric: memory intact, appropriate mood/affect, intact judgment & insight - Labs CBC & Chem 7: 11/13/18 07:57 11/13/18 07:57 Labs: Abnormal lab results 11/12/18 11/13/18 11/13/18 Range/Units 21:13 07:57 07:57 RBC 2.55 L 2.36 L (3.65-5.03) M/mm3 Hgb 8.5 L 7.9 L (11.8-15.2) gm/dl Hct 24.8 L 22.9 L (35.5-45.6) % MCV 97 H 97 H (84-94) fl MCH 33 H 33 H (28-32) pg RDW 15.3 H (13.2-15.2) % Plt Count 35 L 29 L (140-440) K/mm3 PT (12.2-14.9) Sec. INR (0.87-1.13) Sodium 147 H (137-145) mmol/L Potassium 5.8 H (3.6-5.0) mmol/L Chloride 110.4 H (98-107) mmol/L Carbon Dioxide 16 L D (22-30) mmol/L BUN 70 H (9-20) mg/dL Calcium 10.3 H (8.4-10.2) mg/dL 11/13/18 Range/Units 07:57 RBC (3.65-5.03) M/mm3 Hgb (11.8-15.2) gm/dl Hct (35.5-45.6) % MCV (84-94) fl MCH (28-32) pg RDW (13.2-15.2) % Plt Count (140-440) K/mm3 PT 26.5 H (12.2-14.9) Sec. INR 2.50 H (0.87-1.13) Sodium (137-145) mmol/L Potassium (3.6-5.0) mmol/L Chloride (98-107) mmol/L Carbon Dioxide (22-30) mmol/L BUN (9-20) mg/dL Calcium (8.4-10.2) mg/dL Medications & Allergies - Medications Allergies/Adverse Reactions: Allergies Penicillins Allergy (Verified 06/16/13 21:57) Swelling Home Medications: Home Medications Medication Instructions Recorded Confirmed Last Taken Type Apixaban [Eliquis] 5 mg PO BID 10/31/18 11/09/18 11/07/18 History AtorvaSTATin [Lipitor] 40 mg PO DAILY 10/31/18 11/09/18 11/07/18 History Carvedilol [Coreg] 6.25 mg PO BID 10/31/18 11/09/18 11/07/18 History Furosemide [Lasix TAB] 40 mg PO BID 10/31/18 11/09/18 10/31/18 History Sacubitril/Valsartan [Entresto 97 1 each PO BID 10/31/18 11/09/18 11/07/18 History mg-103 mg Tablet] Promethazine [Phenergan] 25 mg PO Q6HR PRN 11/09/18 11/09/18 11/07/18 History Active Medications: Generic Name Dose Route Start Last Admin Trade Name Ruma PRN Reason Stop Dose Admin Carvedilol 6.25 mg 11/09/18 22:00 11/13/18 16:27 Coreg PO 6.25 mg BID WENDY Administration Pantoprazole Sodium 80 mg/ 100 mls @ 10 mls/hr 11/12/18 18:00 11/13/18 17:40 Sodium Chloride IV 8 mg/hr DIRECT WENDY 10 mls/hr Administration 8 MG/HR Metoclopramide HCl 10 mg 11/11/18 11:14 11/12/18 21:40 Reglan IV 10 mg Q8H PRN Administration Nausea And Vomiting Morphine Sulfate 1 mg 11/13/18 14:54 Morphine IV Q4H PRN Pain , Severe (7-10) Nicotine 14 mg 11/11/18 20:00 11/13/18 10:26 Habitrol TD 14 mg QDAY WENDY Administration Ondansetron HCl 4 mg 11/11/18 11:14 11/12/18 02:43 Zofran IV 4 mg Q4H PRN Administration N/V unrelieved by Bakari
[2018-11-13] MEDS ORDERED: NACL 0.9% 500 ML 500 ML IV NR (19:50)
[2018-11-13] MEDS ORDERED: D5/0.45NS 1,000 ML IV SCH (21:00)
[2018-11-13] MEDS ORDERED: ADRENALIN 8 MG in NACL 0.9% 250ML 242 ML IV SCH (23:00)
[2018-11-13] MEDS ORDERED: D50W (25GM) Syringe IV ONE (23:01)
[2018-11-13] MEDS ORDERED: ADRENALIN IV ONE (23:18)
[2018-11-13] MEDS ORDERED: ADRENALIN ONE (23:18)
[2018-11-13] MEDS ORDERED: CORDARONE IV ONE (23:18)
[2018-11-13] MEDS ORDERED: CALCIUM CHLORIDE IV ONE (23:18)
--- NOTE | 2018-11-13 23:43 | Event Note ---
ED M.D. CODE BLUE note/central line note Called to the floor under a CODE BLUE. Upon my arrival the patient was receiving chest compressions from staff and being bagged via a piece in place endotracheal tube. The hospitalist (Dr. Moore) is at bedside directing ACLS protocols. I was asked by the hospitalist to place a central line EDMO central line note Indication: Vasopressor support Location: Right femoral The area of line placement was thoroughly prepared with Betadine/chlorhexidine then draped using sterile technique. A triple lumen central venous catheter was placed using standard Seldinger technique. There was return of dark nonpulsatile blood from all ports. The catheter was secured in place using adhesive A sterile dressing was placed over the line. The patient tolerated the procedure adequately Complications: None
--- NOTE | 2018-11-13 23:50 | XRay Report ---
CHEST 1 VIEW 11/13/2018 11:17 PM INDICATION / CLINICAL INFORMATION: ET tube placement. Status post code. COMPARISON: 2 views of the chest from 10/31/2018. FINDINGS: SUPPORT DEVICES: The tip of the ET tube is located 1.3 cm above the soham. HEART / MEDIASTINUM: No significant abnormality. LUNGS / PLEURA: There are nonspecific bilateral perihilar and right basilar interstitial opacities. N o significant pleural effusion. No pneumothorax. ADDITIONAL FINDINGS: No significant additional findings. IMPRESSION: 1. ET tube as above. 2. Nonspecific bilateral pulmonary passive these could represent atelectasis or evolving pneumonia. Signer Name: Ricki Iqbal MD Signed: 11/13/2018 11:46 PM Workstation Name: [id number]
--- NOTE | 2018-11-14 07:16 | Event Note ---
Date: 11/13/18 CODE BLUE WAS CALLED ON PATIENT. ON ARRIVAL CPR WAS IN PROGRESS, PATIENT INTUBATED AND SUBJECTED TO FULL ACLS PROTOCOL . PATIENTS PULSE WAS RESTORED AFTER ABOUT 30 MINUTES OF CPR BUT PATIENT WENT BACK INTO ASYSTOLE AND ANOTHER ROUND OF CPR WAS APPLIED FOR ABOUT 30- 35MINUTES WITHOUT SUCCESS IN RESUSCITATION AND PATIENT PRONOUNCED AT 11.55 PM . FAMILY MEMBERS WERE PRESENT AND NOTIFIED.
--- NOTE | 2018-11-14 07:20 | Event Note ---
Date: 11/13/18 PATIENT REMAINED LIFELESS AFTER 2 ROUNDS OF CPR WITH DILATED PUPILS AND NO SPONTANEOUS RESPIRATION . THERE WAS ALSO NO AUSCULTATED AIR MOVEMENT OR CARDIAC IMPULSE. PATIENT WAS PRONOUNCED AT 11.55 PM
== END 2018-11-14 02:20 | DRG 435 ==
LOC: ED 10:19 → 3A 14:59 → CC1 11-13 23:20 → 3A 11-14 00:39
PROVIDERS: ADMIT Internal Medicine; ATTEND Internal Medicine
PROC: 3E0234Z Introduction of Serum, Toxoid and Vaccine into Muscle, Percutaneous Approach (ICD-10-PCS; 2018-11-10)
PROC: 5A12012 Performance of Cardiac Output, Single, Manual (ICD-10-PCS; principal; 2018-11-13)
PROC: 06HY33Z Insertion of Infusion Device into Lower Vein, Percutaneous Approach (ICD-10-PCS; 2018-11-13)
PROC: 0BH17EZ Insertion of Endotracheal Airway into Trachea, Via Natural or Artificial Opening (ICD-10-PCS; 2018-11-13)
DX: C78.7 Secondary malignant neoplasm of liver and intrahepatic bile duct (principal); E43 Unspecified severe protein-calorie malnutrition; Z68.1 Body mass index [BMI] 19.9 or less, adult; E87.1 Hypo-osmolality and hyponatremia; E87.5 Hyperkalemia; F12.90 Cannabis use, unspecified, uncomplicated; D69.6 Thrombocytopenia, unspecified; F17.200 Nicotine dependence, unspecified, uncomplicated; F41.9 Anxiety disorder, unspecified; F32.9 Major depressive disorder, single episode, unspecified; C80.1 Malignant (primary) neoplasm, unspecified; G43.909 Migraine, unspecified, not intractable, without status migrainosus; I50.42 Chronic combined systolic (congestive) and diastolic (congestive) heart failure; R64 Cachexia; B18.2 Chronic viral hepatitis C; I46.9 Cardiac arrest, cause unspecified; E11.9 Type 2 diabetes mellitus without complications; I11.0 Hypertensive heart disease with heart failure; Z86.73 Personal history of transient ischemic attack (TIA), and cerebral infarction without residual deficits; Z86.718 Personal history of other venous thrombosis and embolism; Z82.49 Family history of ischemic heart disease and other diseases of the circulatory system; Z79.01 Long term (current) use of anticoagulants; Z88.0 Allergy status to penicillin; Z80.0 Family history of malignant neoplasm of digestive organs; Z23 Encounter for immunization; Z79.84 Long term (current) use of oral hypoglycemic drugs
CPT/HCPCS: 36415; 71045; 74018; 74177; 80048; 80053; 80074; 82106; 82378; 82607; 82728; 82747; 82962; 83550; 83615; 83690; 85025; 85027; 85610; 86140; 86705; 86803; 86850; 86900; 86901; 87517; 90732; 92950; 93005; 93010; 96361; 96374; 96375; 96376; G0378; A9270-GY; C9113; J0171; J0282; J1644; J2060; J2270; J2405; J2765; J7030; J7050; Q0169; Q9967